=== PATIENT | male | born 1960 | race Caucasian/White ===

== ENCOUNTER 2020-08-21 09:24 | Inpatient (IN) | payer OTHER, MEDICARE ==
[~2020-08-21] VITALS: Ht 172.7 cm; Wt 52.0 kg
--- NOTE | 2020-08-21 09:35 | NUR ---
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
--- NOTE | 2020-08-21 09:55 | NUR ---
IV STARTED, LACTIC ACID AND BLOOD CULTURES DRAWN X 2 SITES. SEPSIS PROTOCOL INITIATED.
[2020-08-21] MEDS ORDERED: VANCOMYCIN PER PHARMACY MC ONE (10:00)
[2020-08-21] MEDS ORDERED: AMPICILLIN/SULBACTAM 3 GM in SODIUM CHLORIDE 0.9% 100 ML IV ONE (10:00)
[2020-08-21] MEDS ORDERED: SODIUM CHLORIDE 0.9% 1,000ML IVBOLUS ONE (10:00)
[2020-08-21 10:14] LABS: BASOPHILS % (AUTO) 1 % (0-1); EOSINOPHILS % (AUTO) 0 % (1-7); LYMPHOCYTES % (AUTO) 8 % (22-44); MEAN CORPUSCULAR HEMOGLOBIN 24.1 pg (27.5-34.5); MEAN CORPUSCULAR HGB CONC 33.1 g/dL (33.2-36.2); MEAN PLATELET VOLUME 6.5 fL (7.4-10.4); MONOCYTES % (AUTO) 7 % (2-9); NEUTROPHILS % (AUTO) 85 % (42-75); PLATELET COUNT 767 x10^3/uL (130-400); RED BLOOD COUNT 3.58 x10^6/uL (4.38-5.82); RED CELL DISTRIBUTION WIDTH 14.9 % (9.4-14.8)
[2020-08-21] MEDS ORDERED: MORPHINE SULFATE 4 MG/ML, 1ML ONE ×2 (10:16→13:23)
[2020-08-21 10:18] LABS: ALBUMIN 2.2 g/dL (3.4-5.0); ANION GAP 7 mmol/L (5-15); CALCIUM 8.3 mg/dL (8.5-10.1); CHLORIDE 102 mmol/L (98-107); CREATININE 0.91 mg/dL (0.7-1.3)
[2020-08-21] MEDS: MORPHINE SULFATE 4 MG/ML, 1ML IVPush PRN ×2 (10:19→13:28)
[2020-08-21] MEDS ORDERED: VANCOMYCIN 1,500 MG in SODIUM CHLORIDE 0.9% 250 ML IV ONE (10:30)
[2020-08-21 10:40] LABS: MD MORPH REVIEW ONLY
[2020-08-21 10:42] LABS: <PLATELET ESTIMATE> INCREASED
[2020-08-21 10:43] LABS: SPHEROCYTES 1+
[2020-08-21 10:45] LABS: HYPOCHROMIA 1+
[2020-08-21 10:49] LABS: MICROCYTOSIS 1+
--- NOTE | 2020-08-21 10:55 | NUR ---
PT TO XRAY
--- NOTE | 2020-08-21 11:36 | NUR ---
PT SLEEPING. STATES PAIN RELIEF
[2020-08-21] MEDS ORDERED: VANCOMYCIN PER PHARMACY MC PRN (12:30)
[2020-08-21] MEDS ORDERED: ENALAPRILAT 1.25 MG/ML, 2ML IVPush PRN (12:30)
[2020-08-21] MEDS ORDERED: morphine SULFATE 10 MG/ML, 1ML IVPush PRN (12:30)
[2020-08-21] MEDS ORDERED: ACETAMINOPHEN 325 MG TABLET PO PRN (12:30)
[2020-08-21] MEDS ORDERED: ONDANSETRON ODT 4 MG PO PRN (12:30)
[2020-08-21] MEDS ORDERED: TRAZODONE 50MG TABLET PO PRN (12:30)
--- NOTE | 2020-08-21 13:59 | NUR ---
REPORT CALLED TO JULIO ANDREA
[2020-08-21 14:00] VITALS: BP 135/74
[2020-08-21] MEDS ORDERED: PHARMACOKINETIC MONITORING MC PRN (14:30)
[2020-08-21] MEDS: INSULIN LISPRO 100 UNITS/ML, PEN SQ-INSULIN SCH ×2 (16:00→21:16)
[2020-08-21] MEDS: AMPICILLIN/SULBACTAM 3 GM in SODIUM CHLORIDE 0.9% 100 ML IV SCH ×2 (18:45→23:52)
[2020-08-21 19:26] VITALS: BP 127/75
[2020-08-21] MEDS: HYDROcodone/APAP 5/325 TABLET PO PRN (23:26)
[2020-08-22 01:31] VITALS: BP 100/62
[2020-08-22] MEDS: VANCOMYCIN 1,200 MG in SODIUM CHLORIDE 0.9% 250 ML IV SCH ×2 (04:23→22:03)
[2020-08-22 05:36] LABS: BASOPHILS % (AUTO) 0 % (0-1); EOSINOPHILS % (AUTO) 1 % (1-7); LYMPHOCYTES % (AUTO) 19 % (22-44); MEAN CORPUSCULAR HEMOGLOBIN 24.5 pg (27.5-34.5); MEAN CORPUSCULAR HGB CONC 33.2 g/dL (33.2-36.2); MEAN PLATELET VOLUME 6.4 fL (7.4-10.4); MONOCYTES % (AUTO) 10 % (2-9); NEUTROPHILS % (AUTO) 70 % (42-75); PLATELET COUNT 663 x10^3/uL (130-400); RED BLOOD COUNT 3.18 x10^6/uL (4.38-5.82); RED CELL DISTRIBUTION WIDTH 14.5 % (9.4-14.8)
[2020-08-22 05:41] LABS: MD NO
[2020-08-22 05:46] LABS: ANION GAP 5 mmol/L (5-15); CALCIUM 8.3 mg/dL (8.5-10.1); CHLORIDE 107 mmol/L (98-107); CREATININE 0.95 mg/dL (0.7-1.3)
[2020-08-22] MEDS: AMPICILLIN/SULBACTAM 3 GM in SODIUM CHLORIDE 0.9% 100 ML IV SCH ×4 (06:10→23:56)
[2020-08-22 07:00] VITALS: BP 162/87
[2020-08-22] MEDS: SENNA/DOCUSATE TABLET PO SCH (09:00)
[2020-08-22] MEDS: HYDROcodone/APAP 5/325 TABLET PO PRN ×2 (09:25→16:51)
[2020-08-22] MEDS: INSULIN LISPRO 100 UNITS/ML, PEN SQ-INSULIN SCH ×4 (09:59→20:09)
[2020-08-22 14:00] VITALS: BP 126/71
[2020-08-22 19:17] VITALS: BP 126/70
[2020-08-23] MEDS: HYDROcodone/APAP 5/325 TABLET PO PRN ×2 (02:26→12:36)
[2020-08-23 03:22] VITALS: BP 155/71
[2020-08-23] MEDS: AMPICILLIN/SULBACTAM 3 GM in SODIUM CHLORIDE 0.9% 100 ML IV SCH ×3 (06:27→17:28)
[2020-08-23] MEDS: INSULIN LISPRO 100 UNITS/ML, PEN SQ-INSULIN SCH ×4 (06:33→21:17)
[2020-08-23 06:52] VITALS: BP 142/81
[2020-08-23] MEDS: SENNA/DOCUSATE TABLET PO SCH (07:48)
[2020-08-23 12:18] VITALS: BP 129/78
[2020-08-23] MEDS: VANCOMYCIN 1,200 MG in SODIUM CHLORIDE 0.9% 250 ML IV SCH (16:17)
[2020-08-23 19:59] VITALS: BP 119/66
[2020-08-24] MEDS: AMPICILLIN/SULBACTAM 3 GM in SODIUM CHLORIDE 0.9% 100 ML IV SCH ×4 (00:06→18:01)
[2020-08-24 00:57] VITALS: BP 120/73
[2020-08-24] MEDS: HYDROcodone/APAP 5/325 TABLET PO PRN ×3 (02:04→21:07)
[2020-08-24] MEDS: INSULIN LISPRO 100 UNITS/ML, PEN SQ-INSULIN SCH ×4 (07:26→21:00)
[2020-08-24 07:46] VITALS: BP 126/70
[2020-08-24] MEDS: SENNA/DOCUSATE TABLET PO SCH (08:12)
[2020-08-24] MEDS: VANCOMYCIN 1,200 MG in SODIUM CHLORIDE 0.9% 250 ML IV SCH ×2 (09:58→21:20)
[2020-08-24 12:39] VITALS: BP 109/56
[2020-08-24 19:36] VITALS: BP 129/73
[2020-08-25] MEDS: AMPICILLIN/SULBACTAM 3 GM in SODIUM CHLORIDE 0.9% 100 ML IV SCH ×5 (00:27→23:48)
[2020-08-25 00:48] VITALS: BP 146/88
[2020-08-25 02:49] VITALS: BP 113/59
[2020-08-25] MEDS: HYDROcodone/APAP 5/325 TABLET PO PRN ×2 (06:53→20:47)
[2020-08-25] MEDS: INSULIN LISPRO 100 UNITS/ML, PEN SQ-INSULIN SCH ×4 (07:26→20:48)
[2020-08-25 07:30] VITALS: BP 142/77
[2020-08-25] MEDS: SENNA/DOCUSATE TABLET PO SCH (08:00)
[2020-08-25] MEDS: VANCOMYCIN 1,200 MG in SODIUM CHLORIDE 0.9% 250 ML IV SCH (08:52)
[2020-08-25 13:40] VITALS: BP 123/68
[2020-08-25] MEDS ORDERED: ENOXAPARIN 40 MG/0.4 ML SQ SCH (16:00)
[2020-08-25 18:28] VITALS: BP 111/62
[2020-08-26 00:47] VITALS: BP 132/66
[2020-08-26] MEDS: VANCOMYCIN 1,300 MG in SODIUM CHLORIDE 0.9% 250 ML IV SCH ×2 (03:01→20:39)
[2020-08-26] MEDS: HYDROcodone/APAP 5/325 TABLET PO PRN ×2 (05:26→23:13)
[2020-08-26] MEDS: AMPICILLIN/SULBACTAM 3 GM in SODIUM CHLORIDE 0.9% 100 ML IV SCH ×3 (05:27→23:13)
[2020-08-26] MEDS: INSULIN LISPRO 100 UNITS/ML, PEN SQ-INSULIN SCH ×4 (07:00→20:53)
[2020-08-26 07:30] VITALS: BP 125/66
[2020-08-26] MEDS: SENNA/DOCUSATE TABLET PO SCH (07:44)
[2020-08-26] MEDS ORDERED: PAPAVERINE 30 MG/ML, 2ML ONE (11:11)
[2020-08-26] MEDS ORDERED: HEPARIN 1,000 UNITS/ML, 10ML ONE (11:11)
[2020-08-26] MEDS ORDERED: PROTAMINE SULFATE 10 MG/ML, 5ML ONE (11:11)
[2020-08-26] MEDS ORDERED: THROMBIN 5,000 UNIT VIAL TP ONE (11:11)
[2020-08-26] MEDS ORDERED: LIDOCAINE/PF 1%, 30ML ONE (11:12)
[2020-08-26] MEDS ORDERED: THROMBIN 20,000 UNIT VIAL TP ONE (11:12)
[2020-08-26] MEDS ORDERED: EPINEPHRINE 1 MG/ML, 1ML ONE (11:12)
[2020-08-26] MEDS ORDERED: BACITRACIN 50,000 UNIT ONE (11:12)
[2020-08-26] MEDS ORDERED: CHLORHEXIDINE 15 ML UDC ONE (11:19)
[2020-08-26] MEDS ORDERED: FENTANYL PF 250 MCG/5ML ONE (11:23)
[2020-08-26] MEDS ORDERED: MIDAZOLAM 1 MG/ML, 2ML ONE (11:23)
[2020-08-26] MEDS ORDERED: PROPOFOL 10 MG/ML, 20ML ONE (11:24)
[2020-08-26] MEDS ORDERED: ROCURONIUM 10MG/ML,5ML ONE (11:25)
[2020-08-26] MEDS ORDERED: CHLORHEXIDINE 15 ML UDC MM STA (11:47)
[2020-08-26] MEDS ORDERED: DEXAMETHASONE 4 MG/ML, 5ML ONE ×2 (12:33)
[2020-08-26] MEDS ORDERED: HEPARIN 1,000 UNITS/ML, 10ML IV ONE (13:28)
[2020-08-26] MEDS ORDERED: BACITRACIN 50,000 UNIT IRRIG ONE (13:29)
[2020-08-26] MEDS ORDERED: ONDANSETRON 2MG/ML, 2ML ONE (14:22)
[2020-08-26] MEDS ORDERED: FENTANYL PF 100 MCG/2ML ONE ×2 (15:16→15:38)
[2020-08-26] MEDS: FENTANYL PF 100 MCG/2ML IV PRN ×4 (15:20→15:53)
[2020-08-26] MEDS ORDERED: hydrALAzine 20 MG/ML, 1ML IV PRN (15:30)
[2020-08-26] MEDS ORDERED: PROMETHAZINE 25 MG/ML, 1ML IVPush PRN (15:30)
[2020-08-26] MEDS ORDERED: OXYcodone 5 MG/5 ML ORAL.SOL UDC PO PRN (15:30)
[2020-08-26] MEDS ORDERED: LORazepam 2 MG/ML, 1ML ONE (15:30)
[2020-08-26] MEDS ORDERED: MIDAZOLAM 1 MG/ML, 2ML IV PRN (15:30)
[2020-08-26] MEDS ORDERED: HYDROmorphone 1 MG/ML, 1ML INJ IVPush PRN (15:30)
[2020-08-26] MEDS ORDERED: ACETAMINOPHEN 325 MG TABLET PO PRN (15:30)
[2020-08-26] MEDS ORDERED: ONDANSETRON 2MG/ML, 2ML IVPush PRN (15:30)
[2020-08-26] MEDS ORDERED: LABETALOL 5MG/ML, 20ML IV PRN (15:30)
[2020-08-26] MEDS ORDERED: morphine SULFATE 10 MG/ML, 1ML IVPush PRN (15:30)
[2020-08-26] MEDS: LORazepam 2 MG/ML, 1ML IVPush PRN ×2 (15:35→15:46)
[2020-08-26 17:20] VITALS: BP 121/71
[2020-08-26] MEDS ORDERED: KETOROLAC 30 MG/1 ML IV PRN (17:30)
[2020-08-26] MEDS: ENOXAPARIN 40 MG/0.4 ML SQ SCH (18:47)
[2020-08-26 19:09] VITALS: BP 141/79
[2020-08-26] MEDS: POTASSIUM CHLORIDE 20 MEQ in SODIUM CHLORIDE 0.9% 1,000 ML IV SCH (19:53)
[2020-08-26 23:06] VITALS: BP 130/73
[2020-08-27 03:08] VITALS: BP 128/78
[2020-08-27 04:59] LABS: BASOPHILS % (AUTO) 0 % (0-1); EOSINOPHILS % (AUTO) 0 % (1-7); LYMPHOCYTES % (AUTO) 6 % (22-44); MEAN CORPUSCULAR HEMOGLOBIN 24.2 pg (27.5-34.5); MEAN CORPUSCULAR HGB CONC 32.7 g/dL (33.2-36.2); MEAN PLATELET VOLUME 6.5 fL (7.4-10.4); MONOCYTES % (AUTO) 5 % (2-9); NEUTROPHILS % (AUTO) 89 % (42-75); PLATELET COUNT 637 x10^3/uL (130-400); RED BLOOD COUNT 2.96 x10^6/uL (4.38-5.82); RED CELL DISTRIBUTION WIDTH 14.8 % (9.4-14.8)
[2020-08-27 05:09] LABS: ALBUMIN 1.4 g/dL (3.4-5.0); ANION GAP 8 mmol/L (5-15); CALCIUM 7.7 mg/dL (8.5-10.1); CHLORIDE 106 mmol/L (98-107); CREATININE 0.94 mg/dL (0.7-1.3)
[2020-08-27] MEDS: AMPICILLIN/SULBACTAM 3 GM in SODIUM CHLORIDE 0.9% 100 ML IV SCH ×3 (05:21→21:34)
[2020-08-27 05:29] LABS: MD NO
[2020-08-27 07:32] VITALS: BP 143/80
[2020-08-27] MEDS: SENNA/DOCUSATE TABLET PO SCH (08:13)
[2020-08-27] MEDS: INSULIN LISPRO 100 UNITS/ML, PEN SQ-INSULIN SCH ×4 (08:13→21:35)
[2020-08-27] MEDS: POTASSIUM CHLORIDE 20 MEQ in SODIUM CHLORIDE 0.9% 1,000 ML IV SCH ×2 (11:27→19:06)
[2020-08-27 12:31] VITALS: BP 128/71
[2020-08-27] MEDS ORDERED: FENTANYL PF 100 MCG/2ML IV PRN (14:30)
[2020-08-27] MEDS ORDERED: LABETALOL 5MG/ML, 20ML IV PRN (14:30)
[2020-08-27] MEDS ORDERED: hydrALAzine 20 MG/ML, 1ML IV PRN (14:30)
[2020-08-27] MEDS ORDERED: ONDANSETRON 2MG/ML, 2ML IVPush PRN (14:30)
[2020-08-27] MEDS ORDERED: ACETAMINOPHEN 325 MG TABLET PO PRN (14:30)
[2020-08-27] MEDS ORDERED: PROMETHAZINE 25 MG/ML, 1ML IVPush PRN (14:30)
[2020-08-27] MEDS ORDERED: HYDROmorphone 1 MG/ML, 1ML INJ IVPush PRN (14:30)
[2020-08-27] MEDS ORDERED: OXYcodone 5 MG/5 ML ORAL.SOL UDC PO PRN (14:30)
[2020-08-27] MEDS ORDERED: EPHEDRINE 50 MG/ML, 1ML IVPush PRN (14:30)
[2020-08-27] MEDS ORDERED: CHLORHEXIDINE 15 ML UDC ONE (14:52)
[2020-08-27] MEDS: VANCOMYCIN 1,300 MG in SODIUM CHLORIDE 0.9% 250 ML IV SCH (15:00)
[2020-08-27] MEDS ORDERED: CHLORHEXIDINE 15 ML UDC MM ONE (15:00)
[2020-08-27] MEDS ORDERED: FENTANYL PF 100 MCG/2ML ONE ×2 (15:01→16:00)
[2020-08-27] MEDS ORDERED: MIDAZOLAM 1 MG/ML, 2ML ONE (15:01)
[2020-08-27] MEDS ORDERED: PROPOFOL 10 MG/ML, 20ML ONE (15:22)
[2020-08-27] MEDS ORDERED: DEXAMETHASONE 4 MG/ML, 5ML ONE (15:22)
[2020-08-27] MEDS ORDERED: LIDOCAINE-MPF 2% ,5ML ONE (15:23)
[2020-08-27] MEDS ORDERED: KETOROLAC 30 MG/1 ML ONE (15:23)
[2020-08-27] MEDS ORDERED: ONDANSETRON 2MG/ML, 2ML ONE (15:23)
[2020-08-27] MEDS ORDERED: OXYcodone 5 MG/5 ML ORAL.SOL UDC ONE (16:46)
[2020-08-27 18:00] VITALS: BP 142/80
[2020-08-27] MEDS: ENOXAPARIN 40 MG/0.4 ML SQ SCH (18:43)
[2020-08-27] MEDS: HYDROcodone/APAP 5/325 TABLET PO PRN (21:34)
[2020-08-27 23:39] VITALS: BP 130/85
[2020-08-28 03:30] VITALS: BP 130/75
[2020-08-28] MEDS: AMPICILLIN/SULBACTAM 3 GM in SODIUM CHLORIDE 0.9% 100 ML IV SCH ×4 (03:56→21:14)
[2020-08-28] MEDS: POTASSIUM CHLORIDE 20 MEQ in SODIUM CHLORIDE 0.9% 1,000 ML IV SCH ×2 (04:55→15:18)
[2020-08-28] MEDS: HYDROcodone/APAP 5/325 TABLET PO PRN ×2 (04:55→11:46)
[2020-08-28 07:40] VITALS: BP 150/87
[2020-08-28] MEDS: INSULIN LISPRO 100 UNITS/ML, PEN SQ-INSULIN SCH ×4 (07:46→21:14)
[2020-08-28] MEDS: VANCOMYCIN 1,300 MG in SODIUM CHLORIDE 0.9% 250 ML IV SCH (08:31)
[2020-08-28] MEDS: SENNA/DOCUSATE TABLET PO SCH (10:35)
[2020-08-28] MEDS: CLOPIDOGREL 75 MG TABLET PO SCH (11:36)
[2020-08-28 13:30] VITALS: BP 121/72
[2020-08-28] MEDS: ONDANSETRON 2MG/ML, 2ML IVPush PRN (18:24)
[2020-08-28 19:02] VITALS: BP 126/73
[2020-08-28] MEDS: ENOXAPARIN 40 MG/0.4 ML SQ SCH (19:43)
[2020-08-29] MEDS: POTASSIUM CHLORIDE 20 MEQ in SODIUM CHLORIDE 0.9% 1,000 ML IV SCH ×3 (01:24→21:36)
[2020-08-29 02:04] VITALS: BP 148/87
[2020-08-29] MEDS: HYDROcodone/APAP 5/325 TABLET PO PRN ×3 (02:22→19:23)
[2020-08-29] MEDS: AMPICILLIN/SULBACTAM 3 GM in SODIUM CHLORIDE 0.9% 100 ML IV SCH ×4 (03:18→21:33)
[2020-08-29] MEDS: VANCOMYCIN 1,300 MG in SODIUM CHLORIDE 0.9% 250 ML IV SCH ×2 (03:52→23:07)
[2020-08-29] MEDS: ASPIRIN 81 MG TABLET EC PO SCH (06:14)
[2020-08-29 07:10] VITALS: BP 137/76
[2020-08-29] MEDS: SENNA/DOCUSATE TABLET PO SCH (07:38)
[2020-08-29] MEDS: INSULIN LISPRO 100 UNITS/ML, PEN SQ-INSULIN SCH ×4 (07:38→21:33)
[2020-08-29] MEDS: CLOPIDOGREL 75 MG TABLET PO SCH (07:38)
[2020-08-29] MEDS: morphine SULFATE 10 MG/ML, 1ML IV PRN (10:20)
[2020-08-29 13:40] VITALS: BP 132/76
[2020-08-29 15:25] LABS: BASOPHILS % (AUTO) 1 % (0-1); EOSINOPHILS % (AUTO) 1 % (1-7); LYMPHOCYTES % (AUTO) 12 % (22-44); MEAN CORPUSCULAR HEMOGLOBIN 23.8 pg (27.5-34.5); MEAN CORPUSCULAR HGB CONC 32.4 g/dL (33.2-36.2); MEAN PLATELET VOLUME 6.4 fL (7.4-10.4); MONOCYTES % (AUTO) 8 % (2-9); NEUTROPHILS % (AUTO) 79 % (42-75); PLATELET COUNT 723 x10^3/uL (130-400); RED BLOOD COUNT 3.03 x10^6/uL (4.38-5.82); RED CELL DISTRIBUTION WIDTH 15.3 % (9.4-14.8)
[2020-08-29 15:30] LABS: MD NO
[2020-08-29 15:37] LABS: ALBUMIN 1.6 g/dL (3.4-5.0); ANION GAP 7 mmol/L (5-15); CALCIUM 7.9 mg/dL (8.5-10.1); CHLORIDE 105 mmol/L (98-107)
[2020-08-29 15:42] LABS: ALANINE AMINOTRANSFERASE 15 U/L (12-78); ALKALINE PHOSPHATASE 148 U/L (45-117); BILIRUBIN,TOTAL 0.2 mg/dL (0.2-1.0); CREATININE 0.94 mg/dL (0.7-1.3); TOTAL PROTEIN 5.7 g/dL (6.4-8.2)
[2020-08-29] MEDS ORDERED: FUROSEMIDE 40 MG/4 ML IV ONE (18:00)
[2020-08-29] MEDS: ENOXAPARIN 40 MG/0.4 ML SQ SCH (19:23)
[2020-08-29 19:55] VITALS: BP 132/86
[2020-08-29 22:44] LABS: CREATININE 0.93 mg/dL (0.7-1.3)
[2020-08-29 22:45] LABS: VANCOMYCIN,TROUGH 15.6 mcg/mL (5.0-10.0)
[2020-08-29] MEDS: INSULIN GLARGINE 100 UNITS/ML, PEN SQ-INSULIN SCH (23:07)
[2020-08-30] VITALS (11 sets, daily range): BP systolic 140–160; BP diastolic 64–89
[2020-08-30] MEDS: AMPICILLIN/SULBACTAM 3 GM in SODIUM CHLORIDE 0.9% 100 ML IV SCH ×4 (03:53→21:57)
[2020-08-30 05:13] LABS: BASOPHILS % (AUTO) 1 % (0-1); EOSINOPHILS % (AUTO) 1 % (1-7); LYMPHOCYTES % (AUTO) 12 % (22-44); MEAN CORPUSCULAR HEMOGLOBIN 23.9 pg (27.5-34.5); MEAN CORPUSCULAR HGB CONC 32.8 g/dL (33.2-36.2); MEAN PLATELET VOLUME 6.4 fL (7.4-10.4); MONOCYTES % (AUTO) 7 % (2-9); NEUTROPHILS % (AUTO) 79 % (42-75); PLATELET COUNT 670 x10^3/uL (130-400); RED BLOOD COUNT 2.93 x10^6/uL (4.38-5.82); RED CELL DISTRIBUTION WIDTH 15.2 % (9.4-14.8)
[2020-08-30 05:26] LABS: CHLORIDE 106 mmol/L (98-107); MD NO
[2020-08-30 05:33] LABS: ANION GAP 7 mmol/L (5-15); CALCIUM 7.7 mg/dL (8.5-10.1); CREATININE 0.85 mg/dL (0.7-1.3)
[2020-08-30] MEDS: ASPIRIN 81 MG TABLET EC PO SCH (06:38)
[2020-08-30] MEDS: INSULIN LISPRO 100 UNITS/ML, PEN SQ-INSULIN SCH ×4 (07:00→20:52)
[2020-08-30] MEDS: HYDROcodone/APAP 5/325 TABLET PO PRN ×4 (07:01→19:52)
[2020-08-30] MEDS: POTASSIUM CHLORIDE 20 MEQ in SODIUM CHLORIDE 0.9% 1,000 ML IV SCH ×2 (07:42→16:23)
[2020-08-30] MEDS: SENNA/DOCUSATE TABLET PO SCH (08:30)
[2020-08-30] MEDS: CLOPIDOGREL 75 MG TABLET PO SCH (08:30)
[2020-08-30] MEDS: VANCOMYCIN 1,300 MG in SODIUM CHLORIDE 0.9% 250 ML IV SCH (16:42)
[2020-08-30] MEDS: ENOXAPARIN 40 MG/0.4 ML SQ SCH (19:35)
[2020-08-30] MEDS: INSULIN GLARGINE 100 UNITS/ML, PEN SQ-INSULIN SCH (20:51)
[2020-08-31 03:12] VITALS: BP 154/73
[2020-08-31] MEDS: HYDROcodone/APAP 5/325 TABLET PO PRN ×3 (03:19→16:41)
[2020-08-31] MEDS: POTASSIUM CHLORIDE 20 MEQ in SODIUM CHLORIDE 0.9% 1,000 ML IV SCH ×2 (03:54→14:00)
[2020-08-31] MEDS: AMPICILLIN/SULBACTAM 3 GM in SODIUM CHLORIDE 0.9% 100 ML IV SCH ×4 (04:14→22:32)
[2020-08-31] MEDS: ASPIRIN 81 MG TABLET EC PO SCH (05:37)
[2020-08-31] MEDS: INSULIN LISPRO 100 UNITS/ML, PEN SQ-INSULIN SCH ×4 (07:00→22:48)
[2020-08-31 07:11] VITALS: BP_SYST 143; BP_SYST 146; BP_DIAS 85; BP_DIAS 87
[2020-08-31] MEDS: SENNA/DOCUSATE TABLET PO SCH (07:59)
[2020-08-31] MEDS: CLOPIDOGREL 75 MG TABLET PO SCH (07:59)
[2020-08-31] MEDS: VANCOMYCIN 1,300 MG in SODIUM CHLORIDE 0.9% 250 ML IV SCH (11:37)
[2020-08-31 13:40] VITALS: BP 149/84
[2020-08-31 14:23] LABS: BASOPHILS % (AUTO) 0 % (0-1); EOSINOPHILS % (AUTO) 1 % (1-7); LYMPHOCYTES % (AUTO) 8 % (22-44); MEAN CORPUSCULAR HEMOGLOBIN 24.7 pg (27.5-34.5); MEAN CORPUSCULAR HGB CONC 32.9 g/dL (33.2-36.2); MEAN PLATELET VOLUME 6.1 fL (7.4-10.4); MONOCYTES % (AUTO) 6 % (2-9); NEUTROPHILS % (AUTO) 85 % (42-75); PLATELET COUNT 614 x10^3/uL (130-400); RED BLOOD COUNT 3.53 x10^6/uL (4.38-5.82); RED CELL DISTRIBUTION WIDTH 16.1 % (9.4-14.8)
[2020-08-31 14:51] LABS: ANISOCYTOSIS 1+; MD MORPH REVIEW ONLY; MICROCYTOSIS 1+
[2020-08-31 14:52] LABS: HYPOCHROMIA 1+; POLYCHROMASIA 1+
[2020-08-31 14:53] LABS: OVALOCYTES 1+
[2020-08-31 14:54] LABS: <PLATELET ESTIMATE> INCREASED; <PLT MORPHOLOGY> NORMAL PLT MORPH
[2020-08-31] MEDS ORDERED: FUROSEMIDE 40 MG/4 ML IV ONE (17:00)
[2020-08-31 18:49] VITALS: BP 142/76
[2020-08-31] MEDS: ENOXAPARIN 40 MG/0.4 ML SQ SCH (19:44)
[2020-08-31] MEDS: INSULIN GLARGINE 100 UNITS/ML, PEN SQ-INSULIN SCH (22:47)
[2020-09-01] MEDS: POTASSIUM CHLORIDE 20 MEQ in SODIUM CHLORIDE 0.9% 1,000 ML IV SCH ×3 (00:06→20:18)
[2020-09-01 01:28] VITALS: BP 145/79
[2020-09-01] MEDS: AMPICILLIN/SULBACTAM 3 GM in SODIUM CHLORIDE 0.9% 100 ML IV SCH ×4 (04:05→21:53)
[2020-09-01] MEDS: HYDROcodone/APAP 5/325 TABLET PO PRN ×2 (04:16→20:10)
[2020-09-01] MEDS: VANCOMYCIN 1,300 MG in SODIUM CHLORIDE 0.9% 250 ML IV SCH ×2 (05:35→23:08)
[2020-09-01] MEDS: ASPIRIN 81 MG TABLET EC PO SCH (05:35)
[2020-09-01 05:37] LABS: BASOPHILS % (AUTO) 0 % (0-1); EOSINOPHILS % (AUTO) 1 % (1-7); LYMPHOCYTES % (AUTO) 11 % (22-44); MEAN CORPUSCULAR HEMOGLOBIN 24.7 pg (27.5-34.5); MEAN CORPUSCULAR HGB CONC 33.2 g/dL (33.2-36.2); MEAN PLATELET VOLUME 6.6 fL (7.4-10.4); MONOCYTES % (AUTO) 9 % (2-9); NEUTROPHILS % (AUTO) 79 % (42-75); PLATELET COUNT 581 x10^3/uL (130-400); RED BLOOD COUNT 3.43 x10^6/uL (4.38-5.82); RED CELL DISTRIBUTION WIDTH 16.8 % (9.4-14.8)
[2020-09-01 05:41] LABS: ANION GAP 6 mmol/L (5-15); CALCIUM 7.7 mg/dL (8.5-10.1); CHLORIDE 102 mmol/L (98-107); CREATININE 0.77 mg/dL (0.7-1.3)
[2020-09-01 05:43] LABS: MD NO
[2020-09-01] MEDS: INSULIN LISPRO 100 UNITS/ML, PEN SQ-INSULIN SCH ×4 (07:00→22:17)
[2020-09-01 08:35] VITALS: BP 143/77
[2020-09-01] MEDS: SENNA/DOCUSATE TABLET PO SCH (09:38)
[2020-09-01] MEDS: CLOPIDOGREL 75 MG TABLET PO SCH (09:38)
[2020-09-01] MEDS: morphine SULFATE 10 MG/ML, 1ML IV PRN (09:52)
[2020-09-01 13:20] VITALS: BP 158/85
[2020-09-01] MEDS ORDERED: FUROSEMIDE 40 MG TABLET PO ONE (14:30)
[2020-09-01 19:05] VITALS: BP 140/92
[2020-09-01] MEDS: ENOXAPARIN 40 MG/0.4 ML SQ SCH (19:51)
[2020-09-01] MEDS: INSULIN GLARGINE 100 UNITS/ML, PEN SQ-INSULIN SCH (22:19)
[2020-09-02 01:12] VITALS: BP 156/85
[2020-09-02] MEDS: AMPICILLIN/SULBACTAM 3 GM in SODIUM CHLORIDE 0.9% 100 ML IV SCH ×4 (04:29→22:39)
[2020-09-02] MEDS: HYDROcodone/APAP 5/325 TABLET PO PRN ×3 (04:46→19:39)
[2020-09-02] MEDS: POTASSIUM CHLORIDE 20 MEQ in SODIUM CHLORIDE 0.9% 1,000 ML IV SCH ×2 (06:24→16:30)
[2020-09-02] MEDS: ASPIRIN 81 MG TABLET EC PO SCH (06:25)
[2020-09-02] MEDS: INSULIN LISPRO 100 UNITS/ML, PEN SQ-INSULIN SCH ×4 (07:00→21:41)
[2020-09-02 07:10] VITALS: BP 138/79
[2020-09-02] MEDS: SENNA/DOCUSATE TABLET PO SCH (08:40)
[2020-09-02] MEDS: CLOPIDOGREL 75 MG TABLET PO SCH (08:40)
[2020-09-02 12:48] VITALS: BP 155/76
[2020-09-02] MEDS: VANCOMYCIN 1,300 MG in SODIUM CHLORIDE 0.9% 250 ML IV SCH (17:44)
[2020-09-02] MEDS: ENOXAPARIN 40 MG/0.4 ML SQ SCH (19:40)
[2020-09-02 20:14] VITALS: BP 132/76
[2020-09-02] MEDS: INSULIN GLARGINE 100 UNITS/ML, PEN SQ-INSULIN SCH (21:43)
[2020-09-03] MEDS: POTASSIUM CHLORIDE 20 MEQ in SODIUM CHLORIDE 0.9% 1,000 ML IV SCH ×3 (02:36→22:48)
[2020-09-03 03:13] VITALS: BP 157/89
[2020-09-03] MEDS: AMPICILLIN/SULBACTAM 3 GM in SODIUM CHLORIDE 0.9% 100 ML IV SCH ×4 (04:27→22:27)
[2020-09-03] MEDS: ASPIRIN 81 MG TABLET EC PO SCH (06:16)
[2020-09-03] MEDS: HYDROcodone/APAP 5/325 TABLET PO PRN ×2 (06:16→20:03)
[2020-09-03 06:20] VITALS: BP 141/84
[2020-09-03] MEDS: INSULIN LISPRO 100 UNITS/ML, PEN SQ-INSULIN SCH ×4 (07:00→22:25)
[2020-09-03] MEDS: SENNA/DOCUSATE TABLET PO SCH (09:00)
[2020-09-03] MEDS: CLOPIDOGREL 75 MG TABLET PO SCH (09:01)
[2020-09-03] MEDS: morphine SULFATE 10 MG/ML, 1ML IV PRN (09:36)
[2020-09-03] MEDS: VANCOMYCIN 1,300 MG in SODIUM CHLORIDE 0.9% 250 ML IV SCH (11:19)
[2020-09-03] MEDS: DAKIN'S SOLUTION 1/4 STRENGTH 1,000 ML IRRIG SOLN EXT SCH (12:27)
[2020-09-03 13:35] VITALS: BP 148/87
[2020-09-03 19:46] VITALS: BP 145/75
[2020-09-03] MEDS: ENOXAPARIN 40 MG/0.4 ML SQ SCH (20:04)
[2020-09-03] MEDS ORDERED: INSULIN GLARGINE 100 UNITS/ML, PEN SQ-INSULIN SCH (21:00)
[2020-09-03] MEDS: INSULIN GLARGINE 100 UNITS/ML, PEN SQ-INSULIN SCH (22:26)
[2020-09-04 00:45] VITALS: BP 135/71
[2020-09-04] MEDS: ASPIRIN 81 MG TABLET EC PO SCH (05:06)
[2020-09-04] MEDS: HYDROcodone/APAP 5/325 TABLET PO PRN ×2 (05:06→17:02)
[2020-09-04] MEDS: AMPICILLIN/SULBACTAM 3 GM in SODIUM CHLORIDE 0.9% 100 ML IV SCH ×4 (05:21→22:13)
[2020-09-04] MEDS: VANCOMYCIN 1,300 MG in SODIUM CHLORIDE 0.9% 250 ML IV SCH ×2 (06:11→23:49)
[2020-09-04] MEDS: INSULIN LISPRO 100 UNITS/ML, PEN SQ-INSULIN SCH ×4 (07:00→22:14)
[2020-09-04 07:57] VITALS: BP 153/84
[2020-09-04] MEDS: SENNA/DOCUSATE TABLET PO SCH (08:33)
[2020-09-04] MEDS: POTASSIUM CHLORIDE 20 MEQ in SODIUM CHLORIDE 0.9% 1,000 ML IV SCH ×2 (08:33→17:59)
[2020-09-04] MEDS: CLOPIDOGREL 75 MG TABLET PO SCH (08:33)
[2020-09-04] MEDS: DAKIN'S SOLUTION 1/4 STRENGTH 1,000 ML IRRIG SOLN EXT SCH (09:00)
[2020-09-04 12:09] VITALS: BP 152/80
--- NOTE | 2020-09-04 15:46 | NUR ---
Green nursing activity sheet intiated: 1) up to chair for 2-3 meals 2) amb with nursing with FWW SYLVAIN EPSTEIN 1-3 times a day Addendum: 09/04/20 at 1548 by Madeline Mora PT Amended: Links added.
[2020-09-04 19:40] VITALS: BP 138/75
[2020-09-04] MEDS ORDERED: INSULIN GLARGINE 100 UNITS/ML, PEN SQ-INSULIN SCH (21:00)
[2020-09-04] MEDS: ENOXAPARIN 40 MG/0.4 ML SQ SCH (21:56)
[2020-09-04] MEDS: INSULIN GLARGINE 100 UNITS/ML, PEN SQ-INSULIN SCH (22:14)
[2020-09-05 00:24] VITALS: BP 150/78
[2020-09-05] MEDS: POTASSIUM CHLORIDE 20 MEQ in SODIUM CHLORIDE 0.9% 1,000 ML IV SCH ×2 (04:40→14:30)
[2020-09-05] MEDS: AMPICILLIN/SULBACTAM 3 GM in SODIUM CHLORIDE 0.9% 100 ML IV SCH ×4 (04:40→22:19)
[2020-09-05] MEDS: ASPIRIN 81 MG TABLET EC PO SCH (06:14)
[2020-09-05] MEDS: HYDROcodone/APAP 5/325 TABLET PO PRN ×3 (06:15→21:00)
[2020-09-05] MEDS: INSULIN LISPRO 100 UNITS/ML, PEN SQ-INSULIN SCH ×4 (07:00→22:18)
[2020-09-05] MEDS: DAKIN'S SOLUTION 1/4 STRENGTH 1,000 ML IRRIG SOLN EXT SCH (07:22)
[2020-09-05 07:23] VITALS: BP 146/83
[2020-09-05] MEDS: SENNA/DOCUSATE TABLET PO SCH (08:25)
[2020-09-05] MEDS: CLOPIDOGREL 75 MG TABLET PO SCH (08:25)
[2020-09-05] MEDS: morphine SULFATE 10 MG/ML, 1ML IV PRN (09:24)
[2020-09-05 13:29] VITALS: BP 142/75
[2020-09-05] MEDS: VANCOMYCIN 1,300 MG in SODIUM CHLORIDE 0.9% 250 ML IV SCH (17:15)
[2020-09-05 18:58] VITALS: BP 146/84
[2020-09-05] MEDS: ENOXAPARIN 40 MG/0.4 ML SQ SCH (19:30)
[2020-09-05] MEDS: INSULIN GLARGINE 100 UNITS/ML, PEN SQ-INSULIN SCH (20:53)
[2020-09-06] MEDS: POTASSIUM CHLORIDE 20 MEQ in SODIUM CHLORIDE 0.9% 1,000 ML IV SCH ×3 (01:18→21:30)
[2020-09-06 01:28] VITALS: BP 136/74
[2020-09-06] MEDS: AMPICILLIN/SULBACTAM 3 GM in SODIUM CHLORIDE 0.9% 100 ML IV SCH (04:33)
[2020-09-06] MEDS: ASPIRIN 81 MG TABLET EC PO SCH (06:11)
[2020-09-06] MEDS: INSULIN LISPRO 100 UNITS/ML, PEN SQ-INSULIN SCH ×4 (07:00→22:21)
[2020-09-06] MEDS ORDERED: DEXTROSE 50%, 50ML SYRINGE IVPush ONE (07:00)
[2020-09-06] MEDS: DAKIN'S SOLUTION 1/4 STRENGTH 1,000 ML IRRIG SOLN EXT SCH (07:18)
[2020-09-06] MEDS: SENNA/DOCUSATE TABLET PO SCH (07:25)
[2020-09-06 07:37] VITALS: BP 137/74
[2020-09-06] MEDS: CLOPIDOGREL 75 MG TABLET PO SCH (07:42)
[2020-09-06] MEDS: D5%-0.9% NACL+KCL 20MEQ 1,000 ML IV SCH ×2 (07:54→19:53)
[2020-09-06] MEDS ORDERED: FENTANYL PF 100 MCG/2ML ONE ×2 (09:21→10:37)
[2020-09-06] MEDS ORDERED: MIDAZOLAM 1 MG/ML, 2ML ONE (09:21)
[2020-09-06] MEDS ORDERED: SUCCINYLCHOLINE 20 MG/ML, 10ML ONE (09:34)
[2020-09-06] MEDS ORDERED: CEFAZOLIN 1,000 MG ONE (09:34)
[2020-09-06] MEDS ORDERED: ONDANSETRON 2MG/ML, 2ML ONE (09:34)
[2020-09-06] MEDS ORDERED: ROCURONIUM 10 MG/ML,10ML ONE (09:34)
[2020-09-06] MEDS ORDERED: PROPOFOL 10 MG/ML, 20ML ONE (09:34)
[2020-09-06] MEDS ORDERED: KETOROLAC 30 MG/1 ML IV PRN (10:00)
[2020-09-06] MEDS ORDERED: hydrALAzine 20 MG/ML, 1ML IV PRN (10:00)
[2020-09-06] MEDS ORDERED: DIAZEPAM 5 MG/ML, 2ML IV PRN ×2 (10:00)
[2020-09-06] MEDS ORDERED: OXYcodone 5 MG/5 ML ORAL.SOL UDC PO PRN (10:00)
[2020-09-06] MEDS ORDERED: MEPERIDINE/PF 25MG/0.5ML IVPush PRN (10:00)
[2020-09-06] MEDS ORDERED: ONDANSETRON 2MG/ML, 2ML IVPush PRN (10:00)
[2020-09-06] MEDS ORDERED: LABETALOL 5MG/ML, 20ML IV PRN (10:00)
[2020-09-06] MEDS ORDERED: PROMETHAZINE 25 MG/ML, 1ML IV PRN (10:00)
[2020-09-06] MEDS ORDERED: ALBUTEROL SULFATE 2.5 MG/3 ML NPPB PRN (10:00)
[2020-09-06] MEDS ORDERED: METOCLOPRAMIDE 5 MG/ML, 2ML IV PRN (10:00)
[2020-09-06] MEDS ORDERED: ACETAMINOPHEN 1,000 MG/100 ML IV ONE (10:18)
[2020-09-06] MEDS ORDERED: OXYcodone 5 MG/5 ML ORAL.SOL UDC ONE (10:37)
[2020-09-06] MEDS: FENTANYL PF 100 MCG/2ML IV PRN ×2 (10:41→11:06)
[2020-09-06] MEDS ORDERED: HYDROmorphone 1 MG/ML, 1ML INJ ONE (11:08)
[2020-09-06] MEDS: HYDROmorphone 1 MG/ML, 1ML INJ IV PRN ×2 (11:20→11:39)
[2020-09-06 12:09] VITALS: BP 156/86
[2020-09-06] MEDS: HYDROcodone/APAP 5/325 TABLET PO PRN ×3 (14:35→22:21)
[2020-09-06 19:00] VITALS: BP 122/67
[2020-09-06] MEDS: ENOXAPARIN 40 MG/0.4 ML SQ SCH (19:54)
[2020-09-06] MEDS: INSULIN GLARGINE 100 UNITS/ML, PEN SQ-INSULIN SCH (22:20)
[2020-09-07 00:02] VITALS: BP 164/95
[2020-09-07 00:50] VITALS: BP 166/82
[2020-09-07] MEDS: HYDROcodone/APAP 5/325 TABLET PO PRN ×4 (02:38→19:31)
[2020-09-07 03:46] VITALS: BP 149/84
[2020-09-07] MEDS: D5%-0.9% NACL+KCL 20MEQ 1,000 ML IV SCH (05:35)
[2020-09-07] MEDS: ASPIRIN 81 MG TABLET EC PO SCH (05:40)
[2020-09-07 07:14] VITALS: BP 128/68
[2020-09-07] MEDS: CLOPIDOGREL 75 MG TABLET PO SCH (08:01)
[2020-09-07] MEDS: INSULIN LISPRO 100 UNITS/ML, PEN SQ-INSULIN SCH ×4 (08:04→20:58)
[2020-09-07] MEDS: POTASSIUM CHLORIDE 20 MEQ in SODIUM CHLORIDE 0.9% 1,000 ML IV SCH (08:05)
[2020-09-07] MEDS: SENNA/DOCUSATE TABLET PO SCH (08:06)
[2020-09-07] MEDS: DAKIN'S SOLUTION 1/4 STRENGTH 1,000 ML IRRIG SOLN EXT SCH (08:06)
[2020-09-07 10:47] LABS: BASOPHILS % (AUTO) 1 % (0-1); EOSINOPHILS % (AUTO) 2 % (1-7); LYMPHOCYTES % (AUTO) 13 % (22-44); MEAN CORPUSCULAR HEMOGLOBIN 25.1 pg (27.5-34.5); MEAN CORPUSCULAR HGB CONC 33.5 g/dL (33.2-36.2); MEAN PLATELET VOLUME 6.5 fL (7.4-10.4); MONOCYTES % (AUTO) 11 % (2-9); NEUTROPHILS % (AUTO) 73 % (42-75); PLATELET COUNT 465 x10^3/uL (130-400); RED BLOOD COUNT 3.38 x10^6/uL (4.38-5.82); RED CELL DISTRIBUTION WIDTH 18.1 % (9.4-14.8)
[2020-09-07 10:48] LABS: MD NO
[2020-09-07 13:59] VITALS: BP 155/73
[2020-09-07] MEDS ORDERED: VANCOMYCIN PER PHARMACY MC PRN (16:00)
[2020-09-07] MEDS ORDERED: PHARMACOKINETIC CONSULTATION MC ONE (16:30)
[2020-09-07] MEDS ORDERED: VANCOMYCIN 1,700 MG in SODIUM CHLORIDE 0.9% 250 ML IV SCH (16:30)
[2020-09-07] MEDS ORDERED: PHARMACOKINETIC MONITORING MC PRN (16:30)
[2020-09-07] MEDS ORDERED: VANCOMYCIN 1,700 MG in SODIUM CHLORIDE 0.9% 250 ML IV ONE (16:30)
[2020-09-07] MEDS: AMPICILLIN/SULBACTAM 3 GM in SODIUM CHLORIDE 0.9% 100 ML IV SCH (16:40)
[2020-09-07] MEDS ORDERED: VANCOMYCIN 1,300 MG in SODIUM CHLORIDE 0.9% 250 ML IV SCH (17:00)
[2020-09-07 18:22] VITALS: BP 141/79
[2020-09-07] MEDS: ENOXAPARIN 40 MG/0.4 ML SQ SCH (19:32)
[2020-09-07] MEDS: INSULIN GLARGINE 100 UNITS/ML, PEN SQ-INSULIN SCH (20:57)
[2020-09-08] MEDS: AMPICILLIN/SULBACTAM 3 GM in SODIUM CHLORIDE 0.9% 100 ML IV SCH ×4 (00:04→23:27)
[2020-09-08] MEDS: HYDROcodone/APAP 5/325 TABLET PO PRN ×5 (00:06→20:28)
[2020-09-08 01:22] VITALS: BP 143/76
[2020-09-08 06:11] LABS: CHLORIDE 107 mmol/L (98-107)
[2020-09-08 06:15] LABS: BASOPHILS % (AUTO) 1 % (0-1); EOSINOPHILS % (AUTO) 2 % (1-7); LYMPHOCYTES % (AUTO) 15 % (22-44); MEAN CORPUSCULAR HEMOGLOBIN 24.5 pg (27.5-34.5); MEAN CORPUSCULAR HGB CONC 32.8 g/dL (33.2-36.2); MEAN PLATELET VOLUME 6.7 fL (7.4-10.4); MONOCYTES % (AUTO) 11 % (2-9); NEUTROPHILS % (AUTO) 71 % (42-75); PLATELET COUNT 458 x10^3/uL (130-400); RED BLOOD COUNT 3.43 x10^6/uL (4.38-5.82)
[2020-09-08 06:18] LABS: ALBUMIN 1.7 g/dL (3.4-5.0); ANION GAP 6 mmol/L (5-15); CALCIUM 7.7 mg/dL (8.5-10.1); VANCOMYCIN,RANDOM 14.5 mcg/mL
[2020-09-08] MEDS: ASPIRIN 81 MG TABLET EC PO SCH (06:18)
[2020-09-08 06:38] LABS: MD NO
[2020-09-08] MEDS: INSULIN LISPRO 100 UNITS/ML, PEN SQ-INSULIN SCH ×4 (07:00→20:29)
[2020-09-08 07:17] VITALS: BP 161/82
[2020-09-08] MEDS: SENNA/DOCUSATE TABLET PO SCH (08:08)
[2020-09-08] MEDS: CLOPIDOGREL 75 MG TABLET PO SCH (08:08)
[2020-09-08] MEDS ORDERED: VANCOMYCIN 1,700 MG in SODIUM CHLORIDE 0.9% 250 ML IV ONE (12:00)
[2020-09-08] MEDS ORDERED: VANCOMYCIN 1,300 MG in SODIUM CHLORIDE 0.9% 250 ML IV SCH (12:00)
[2020-09-08 13:24] VITALS: BP 141/79
[2020-09-08] MEDS: ENOXAPARIN 40 MG/0.4 ML SQ SCH (19:30)
[2020-09-08 20:07] VITALS: BP 129/65
[2020-09-08] MEDS: INSULIN GLARGINE 100 UNITS/ML, PEN SQ-INSULIN SCH (20:30)
[2020-09-09 01:58] VITALS: BP 116/68
[2020-09-09 05:46] LABS: ANION GAP 6 mmol/L (5-15); CHLORIDE 106 mmol/L (98-107); CREATININE 0.78 mg/dL (0.7-1.3)
[2020-09-09] MEDS: VANCOMYCIN 1,300 MG in SODIUM CHLORIDE 0.9% 250 ML IV SCH (06:08)
[2020-09-09] MEDS: ASPIRIN 81 MG TABLET EC PO SCH (06:08)
[2020-09-09 06:09] LABS: BASOPHILS % (AUTO) 1 % (0-1); EOSINOPHILS % (AUTO) 2 % (1-7); LYMPHOCYTES % (AUTO) 14 % (22-44); MEAN CORPUSCULAR HEMOGLOBIN 24.5 pg (27.5-34.5); MEAN CORPUSCULAR HGB CONC 33.2 g/dL (33.2-36.2); MEAN PLATELET VOLUME 6.8 fL (7.4-10.4); MONOCYTES % (AUTO) 10 % (2-9); NEUTROPHILS % (AUTO) 73 % (42-75); PLATELET COUNT 451 x10^3/uL (130-400); RED BLOOD COUNT 3.36 x10^6/uL (4.38-5.82); RED CELL DISTRIBUTION WIDTH 17.8 % (9.4-14.8)
[2020-09-09 06:11] LABS: MD NO
[2020-09-09] MEDS: INSULIN LISPRO 100 UNITS/ML, PEN SQ-INSULIN SCH ×4 (07:00→21:03)
[2020-09-09 07:10] VITALS: BP 132/66
[2020-09-09] MEDS: CLOPIDOGREL 75 MG TABLET PO SCH (08:05)
[2020-09-09] MEDS: SENNA/DOCUSATE TABLET PO SCH (08:06)
[2020-09-09] MEDS: AMPICILLIN/SULBACTAM 3 GM in SODIUM CHLORIDE 0.9% 100 ML IV SCH ×2 (08:06→16:57)
[2020-09-09] MEDS: HYDROcodone/APAP 5/325 TABLET PO PRN ×2 (08:16→20:56)
[2020-09-09 13:00] VITALS: BP 140/80
[2020-09-09 18:43] VITALS: BP 138/73
[2020-09-09] MEDS: ENOXAPARIN 40 MG/0.4 ML SQ SCH (20:54)
[2020-09-09] MEDS: INSULIN GLARGINE 100 UNITS/ML, PEN SQ-INSULIN SCH (21:04)
[2020-09-10] MEDS: VANCOMYCIN 1,300 MG in SODIUM CHLORIDE 0.9% 250 ML IV SCH ×2 (00:01→18:04)
[2020-09-10 01:35] VITALS: BP 115/72
[2020-09-10] MEDS: AMPICILLIN/SULBACTAM 3 GM in SODIUM CHLORIDE 0.9% 100 ML IV SCH ×3 (02:00→17:27)
[2020-09-10 05:37] LABS: BASOPHILS % (AUTO) 1 % (0-1); EOSINOPHILS % (AUTO) 1 % (1-7); LYMPHOCYTES % (AUTO) 14 % (22-44); MEAN CORPUSCULAR HEMOGLOBIN 24.8 pg (27.5-34.5); MEAN CORPUSCULAR HGB CONC 33.4 g/dL (33.2-36.2); MEAN PLATELET VOLUME 6.5 fL (7.4-10.4); MONOCYTES % (AUTO) 11 % (2-9); NEUTROPHILS % (AUTO) 74 % (42-75); PLATELET COUNT 427 x10^3/uL (130-400); RED BLOOD COUNT 3.21 x10^6/uL (4.38-5.82); RED CELL DISTRIBUTION WIDTH 17.3 % (9.4-14.8)
[2020-09-10 06:01] LABS: MD NO
[2020-09-10] MEDS: ASPIRIN 81 MG TABLET EC PO SCH (06:26)
[2020-09-10] MEDS: HYDROcodone/APAP 5/325 TABLET PO PRN ×3 (06:28→21:37)
[2020-09-10 06:58] LABS: ALBUMIN 1.6 g/dL (3.4-5.0); ANION GAP 7 mmol/L (5-15); CALCIUM 7.6 mg/dL (8.5-10.1); CHLORIDE 108 mmol/L (98-107); CREATININE 0.66 mg/dL (0.7-1.3)
[2020-09-10] MEDS: INSULIN LISPRO 100 UNITS/ML, PEN SQ-INSULIN SCH ×4 (07:00→21:38)
[2020-09-10 07:16] VITALS: BP 133/75
[2020-09-10] MEDS: SENNA/DOCUSATE TABLET PO SCH (08:16)
[2020-09-10] MEDS: CLOPIDOGREL 75 MG TABLET PO SCH (08:16)
[2020-09-10 12:54] VITALS: BP 140/78
[2020-09-10 19:46] VITALS: BP 143/82
[2020-09-10] MEDS: ENOXAPARIN 40 MG/0.4 ML SQ SCH (21:14)
[2020-09-10] MEDS: INSULIN GLARGINE 100 UNITS/ML, PEN SQ-INSULIN SCH (21:39)
[2020-09-11 00:57] VITALS: BP 137/82
[2020-09-11] MEDS: AMPICILLIN/SULBACTAM 3 GM in SODIUM CHLORIDE 0.9% 100 ML IV SCH ×3 (01:48→17:48)
[2020-09-11 04:43] LABS: CREATININE 0.92 mg/dL (0.7-1.3)
[2020-09-11] MEDS: ASPIRIN 81 MG TABLET EC PO SCH (06:14)
[2020-09-11] MEDS: INSULIN LISPRO 100 UNITS/ML, PEN SQ-INSULIN SCH ×4 (07:00→21:00)
[2020-09-11] MEDS: CLOPIDOGREL 75 MG TABLET PO SCH (08:06)
[2020-09-11] MEDS: SENNA/DOCUSATE TABLET PO SCH (08:06)
[2020-09-11] MEDS: IRON SUCROSE COMPLEX 100MG/5ML IV SCH (08:06)
[2020-09-11 10:00] VITALS: BP 144/83
[2020-09-11] MEDS: HYDROcodone/APAP 5/325 TABLET PO PRN ×2 (11:38→21:48)
[2020-09-11] MEDS: VANCOMYCIN 1,300 MG in SODIUM CHLORIDE 0.9% 250 ML IV SCH (11:38)
[2020-09-11 15:58] VITALS: BP 135/77
[2020-09-11 18:56] VITALS: BP 142/82
[2020-09-11] MEDS: ENOXAPARIN 40 MG/0.4 ML SQ SCH (19:37)
[2020-09-11] MEDS: INSULIN GLARGINE 100 UNITS/ML, PEN SQ-INSULIN SCH (21:47)
[2020-09-12 01:14] VITALS: BP 123/77
[2020-09-12] MEDS: AMPICILLIN/SULBACTAM 3 GM in SODIUM CHLORIDE 0.9% 100 ML IV SCH ×3 (01:58→17:31)
[2020-09-12 05:57] LABS: BASOPHILS % (AUTO) 2 % (0-1); EOSINOPHILS % (AUTO) 4 % (1-7); LYMPHOCYTES % (AUTO) 23 % (22-44); MEAN CORPUSCULAR HEMOGLOBIN 24.2 pg (27.5-34.5); MEAN CORPUSCULAR HGB CONC 32.8 g/dL (33.2-36.2); MEAN PLATELET VOLUME 6.5 fL (7.4-10.4); MONOCYTES % (AUTO) 12 % (2-9); NEUTROPHILS % (AUTO) 60 % (42-75); PLATELET COUNT 422 x10^3/uL (130-400); RED BLOOD COUNT 3.36 x10^6/uL (4.38-5.82); RED CELL DISTRIBUTION WIDTH 17.9 % (9.4-14.8)
[2020-09-12 05:59] LABS: MD NO
[2020-09-12 06:07] LABS: CHLORIDE 108 mmol/L (98-107)
[2020-09-12] MEDS: VANCOMYCIN 1,300 MG in SODIUM CHLORIDE 0.9% 250 ML IV SCH (06:15)
[2020-09-12] MEDS: HYDROcodone/APAP 5/325 TABLET PO PRN ×2 (06:15→21:58)
[2020-09-12] MEDS: ASPIRIN 81 MG TABLET EC PO SCH (06:15)
[2020-09-12 06:16] LABS: ANION GAP 8 mmol/L (5-15); CREATININE 0.75 mg/dL (0.7-1.3); VANCOMYCIN,TROUGH 17.4 mcg/mL (5.0-10.0)
[2020-09-12] MEDS: INSULIN LISPRO 100 UNITS/ML, PEN SQ-INSULIN SCH ×4 (06:58→21:00)
[2020-09-12 07:15] VITALS: BP 125/75
[2020-09-12] MEDS: CLOPIDOGREL 75 MG TABLET PO SCH (08:07)
[2020-09-12] MEDS: IRON SUCROSE COMPLEX 100MG/5ML IV SCH (08:07)
[2020-09-12] MEDS: SENNA/DOCUSATE TABLET PO SCH (08:07)
[2020-09-12 12:05] VITALS: BP 141/82
[2020-09-12 18:29] VITALS: BP 142/75
[2020-09-12] MEDS: ENOXAPARIN 40 MG/0.4 ML SQ SCH (20:02)
[2020-09-12] MEDS: INSULIN GLARGINE 100 UNITS/ML, PEN SQ-INSULIN SCH (21:57)
[2020-09-13] MEDS: VANCOMYCIN 1,300 MG in SODIUM CHLORIDE 0.9% 250 ML IV SCH ×2 (00:01→17:13)
[2020-09-13 00:38] VITALS: BP 127/70
[2020-09-13] MEDS: AMPICILLIN/SULBACTAM 3 GM in SODIUM CHLORIDE 0.9% 100 ML IV SCH ×3 (02:01→19:54)
[2020-09-13] MEDS: ASPIRIN 81 MG TABLET EC PO SCH (06:24)
[2020-09-13 06:45] VITALS: BP 122/70
[2020-09-13] MEDS: IRON SUCROSE COMPLEX 100MG/5ML IV SCH (08:34)
[2020-09-13] MEDS: INSULIN LISPRO 100 UNITS/ML, PEN SQ-INSULIN SCH ×4 (08:34→21:00)
[2020-09-13] MEDS: SENNA/DOCUSATE TABLET PO SCH (08:35)
[2020-09-13] MEDS: CLOPIDOGREL 75 MG TABLET PO SCH (08:35)
[2020-09-13 14:30] VITALS: BP 144/76
[2020-09-13] MEDS: HYDROcodone/APAP 5/325 TABLET PO PRN ×2 (17:13→21:48)
[2020-09-13 19:04] VITALS: BP 144/77
[2020-09-13] MEDS: ENOXAPARIN 40 MG/0.4 ML SQ SCH (19:54)
[2020-09-13] MEDS: INSULIN GLARGINE 100 UNITS/ML, PEN SQ-INSULIN SCH (21:48)
[2020-09-14 01:07] VITALS: BP 129/78
[2020-09-14] MEDS: AMPICILLIN/SULBACTAM 3 GM in SODIUM CHLORIDE 0.9% 100 ML IV SCH ×3 (03:34→21:09)
[2020-09-14 05:44] LABS: BASOPHILS % (AUTO) 1 % (0-1); EOSINOPHILS % (AUTO) 3 % (1-7); LYMPHOCYTES % (AUTO) 22 % (22-44); MEAN CORPUSCULAR HEMOGLOBIN 24.5 pg (27.5-34.5); MEAN CORPUSCULAR HGB CONC 32.9 g/dL (33.2-36.2); MEAN PLATELET VOLUME 6.6 fL (7.4-10.4); MONOCYTES % (AUTO) 12 % (2-9); NEUTROPHILS % (AUTO) 62 % (42-75); PLATELET COUNT 422 x10^3/uL (130-400); RED BLOOD COUNT 3.25 x10^6/uL (4.38-5.82); RED CELL DISTRIBUTION WIDTH 17.5 % (9.4-14.8)
[2020-09-14 05:46] LABS: MD NO
[2020-09-14 05:57] LABS: ALBUMIN 1.8 g/dL (3.4-5.0); ANION GAP 7 mmol/L (5-15); CALCIUM 7.9 mg/dL (8.5-10.1); CHLORIDE 109 mmol/L (98-107); CREATININE 0.68 mg/dL (0.7-1.3)
[2020-09-14] MEDS ORDERED: POTASSIUM CHLORIDE 20 MEQ TAB.ER.PRT PO ONE (06:30)
[2020-09-14] MEDS: ASPIRIN 81 MG TABLET EC PO SCH (06:30)
[2020-09-14] MEDS: HYDROcodone/APAP 5/325 TABLET PO PRN ×3 (06:30→17:46)
[2020-09-14] MEDS: INSULIN LISPRO 100 UNITS/ML, PEN SQ-INSULIN SCH ×4 (06:33→21:00)
[2020-09-14 07:57] VITALS: BP 117/71
[2020-09-14] MEDS: SENNA/DOCUSATE TABLET PO SCH (09:00)
[2020-09-14] MEDS: IRON SUCROSE COMPLEX 100MG/5ML IV SCH (10:17)
[2020-09-14] MEDS: CLOPIDOGREL 75 MG TABLET PO SCH (10:17)
[2020-09-14] MEDS: VANCOMYCIN 1,300 MG in SODIUM CHLORIDE 0.9% 250 ML IV SCH (13:17)
[2020-09-14 14:57] VITALS: BP 113/71
[2020-09-14 18:50] VITALS: BP 113/67
[2020-09-14] MEDS: ENOXAPARIN 40 MG/0.4 ML SQ SCH (20:12)
[2020-09-14] MEDS: INSULIN GLARGINE 100 UNITS/ML, PEN SQ-INSULIN SCH (20:13)
[2020-09-15 01:24] VITALS: BP 116/69
[2020-09-15] MEDS: AMPICILLIN/SULBACTAM 3 GM in SODIUM CHLORIDE 0.9% 100 ML IV SCH ×3 (04:42→20:15)
[2020-09-15] MEDS: HYDROcodone/APAP 5/325 TABLET PO PRN (04:47)
[2020-09-15] MEDS: VANCOMYCIN 1,300 MG in SODIUM CHLORIDE 0.9% 250 ML IV SCH (06:01)
[2020-09-15] MEDS: ASPIRIN 81 MG TABLET EC PO SCH (06:01)
[2020-09-15] MEDS: INSULIN LISPRO 100 UNITS/ML, PEN SQ-INSULIN SCH ×4 (07:00→21:00)
[2020-09-15] MEDS: IRON SUCROSE COMPLEX 100MG/5ML IV SCH (08:15)
[2020-09-15] MEDS: CLOPIDOGREL 75 MG TABLET PO SCH (08:15)
[2020-09-15] MEDS: SENNA/DOCUSATE TABLET PO SCH (08:15)
[2020-09-15 08:20] VITALS: BP 121/76
[2020-09-15 14:15] VITALS: BP 133/85
[2020-09-15 19:26] VITALS: BP 144/84
[2020-09-15] MEDS: ENOXAPARIN 40 MG/0.4 ML SQ SCH (20:15)
[2020-09-15] MEDS ORDERED: INSULIN GLARGINE 100 UNITS/ML, PEN SQ-INSULIN SCH (21:00)
[2020-09-16] MEDS: VANCOMYCIN 1,300 MG in SODIUM CHLORIDE 0.9% 250 ML IV SCH (00:28)
[2020-09-16 01:01] VITALS: BP 127/73
[2020-09-16] MEDS: ONDANSETRON 2MG/ML, 2ML IVPush PRN ×3 (03:02→15:54)
[2020-09-16] MEDS: HYDROcodone/APAP 5/325 TABLET PO PRN ×2 (03:30→20:11)
[2020-09-16] MEDS: AMPICILLIN/SULBACTAM 3 GM in SODIUM CHLORIDE 0.9% 100 ML IV SCH ×2 (04:51→11:15)
[2020-09-16] MEDS: INSULIN LISPRO 100 UNITS/ML, PEN SQ-INSULIN SCH ×4 (07:00→19:55)
[2020-09-16 07:20] VITALS: BP 155/90
[2020-09-16] MEDS: ASPIRIN 81 MG TABLET EC PO SCH (08:12)
[2020-09-16] MEDS: SENNA/DOCUSATE TABLET PO SCH (08:12)
[2020-09-16] MEDS: CLOPIDOGREL 75 MG TABLET PO SCH (08:12)
[2020-09-16 10:41] LABS: ANION GAP 7 mmol/L (5-15); CALCIUM 8.1 mg/dL (8.5-10.1); CHLORIDE 107 mmol/L (98-107)
[2020-09-16 12:18] LABS: BASOPHILS % (AUTO) 1 % (0-1); EOSINOPHILS % (AUTO) 4 % (1-7); LYMPHOCYTES % (AUTO) 16 % (22-44); MEAN CORPUSCULAR HEMOGLOBIN 24.8 pg (27.5-34.5); MEAN CORPUSCULAR HGB CONC 32.9 g/dL (33.2-36.2); MEAN PLATELET VOLUME 6.7 fL (7.4-10.4); MONOCYTES % (AUTO) 12 % (2-9); NEUTROPHILS % (AUTO) 67 % (42-75); PLATELET COUNT 474 x10^3/uL (130-400); RED BLOOD COUNT 3.55 x10^6/uL (4.38-5.82); RED CELL DISTRIBUTION WIDTH 19.6 % (9.4-14.8)
[2020-09-16 12:19] LABS: MD NO
[2020-09-16 13:10] VITALS: BP 151/83
[2020-09-16] MEDS: D5%-LACTATED RINGERS 1,000 ML IV SCH (15:51)
[2020-09-16 16:28] LABS: CLOSTRIDIUM DIFFICILE ANTIGEN NEGATIVE; CLOSTRIDIUM DIFFICILE TOXIN NEGATIVE (Negative)
[2020-09-16] MEDS: MEROPENEM 1 GM in SODIUM CHLORIDE 0.9% 100 ML IV SCH (16:57)
[2020-09-16] MEDS ORDERED: LOPERAMIDE 1 MG/5 ML, 10ML UDC PO ONE (17:00)
[2020-09-16] MEDS ORDERED: LOPERAMIDE 2 MG CAPSULE ONE (17:03)
[2020-09-16] MEDS ORDERED: LOPERAMIDE 2 MG CAPSULE PO ONE (17:30)
[2020-09-16 19:59] VITALS: BP 152/82
[2020-09-16] MEDS: ENOXAPARIN 40 MG/0.4 ML SQ SCH (20:07)
[2020-09-17 00:47] VITALS: BP 124/75
[2020-09-17] MEDS: MEROPENEM 1 GM in SODIUM CHLORIDE 0.9% 100 ML IV SCH ×3 (01:58→16:58)
[2020-09-17 04:45] LABS: CREATININE 0.77 mg/dL (0.7-1.3)
[2020-09-17] MEDS: D5%-LACTATED RINGERS 1,000 ML IV SCH (05:21)
[2020-09-17] MEDS: ASPIRIN 81 MG TABLET EC PO SCH (06:00)
[2020-09-17] MEDS: INSULIN LISPRO 100 UNITS/ML, PEN SQ-INSULIN SCH ×4 (06:14→21:00)
[2020-09-17 07:10] VITALS: BP 126/71
[2020-09-17] MEDS: SENNA/DOCUSATE TABLET PO SCH (08:26)
[2020-09-17] MEDS: CLOPIDOGREL 75 MG TABLET PO SCH (08:26)
[2020-09-17 09:36] LABS: HCT (SEDRATE) 29.1 % (39.2-51.8)
[2020-09-17 09:56] LABS: C-REACTIVE PROTEIN, QUANT 8.6 mg/dL (0.02-0.49)
[2020-09-17 14:35] VITALS: BP 129/78
[2020-09-17] MEDS: HYDROcodone/APAP 5/325 TABLET PO PRN ×2 (15:01→21:38)
[2020-09-17 20:38] VITALS: BP 119/69
[2020-09-17] MEDS: ENOXAPARIN 40 MG/0.4 ML SQ SCH (21:38)
[2020-09-18] MEDS: MEROPENEM 1 GM in SODIUM CHLORIDE 0.9% 100 ML IV SCH ×3 (01:11→16:58)
[2020-09-18 02:34] VITALS: BP 119/74
[2020-09-18 05:38] LABS: BASOPHILS % (AUTO) 1 % (0-1); EOSINOPHILS % (AUTO) 4 % (1-7); LYMPHOCYTES % (AUTO) 30 % (22-44); MEAN CORPUSCULAR HGB CONC 32.8 g/dL (33.2-36.2); MEAN PLATELET VOLUME 6.7 fL (7.4-10.4); MONOCYTES % (AUTO) 15 % (2-9); NEUTROPHILS % (AUTO) 51 % (42-75); PLATELET COUNT 455 x10^3/uL (130-400); RED BLOOD COUNT 3.41 x10^6/uL (4.38-5.82); RED CELL DISTRIBUTION WIDTH 20.8 % (9.4-14.8)
[2020-09-18 05:47] LABS: ANION GAP 7 mmol/L (5-15); CALCIUM 7.7 mg/dL (8.5-10.1); CHLORIDE 107 mmol/L (98-107)
[2020-09-18 05:49] LABS: CREATININE 0.88 mg/dL (0.7-1.3)
[2020-09-18 05:51] LABS: MD NO
[2020-09-18] MEDS: ASPIRIN 81 MG TABLET EC PO SCH (06:09)
[2020-09-18] MEDS: HYDROcodone/APAP 5/325 TABLET PO PRN ×4 (06:10→21:05)
[2020-09-18] MEDS: INSULIN LISPRO 100 UNITS/ML, PEN SQ-INSULIN SCH ×4 (06:12→21:04)
[2020-09-18 07:28] VITALS: BP 130/74
[2020-09-18] MEDS ORDERED: FUROSEMIDE 20 MG/2 ML IV ONE (07:30)
[2020-09-18] MEDS: CLOPIDOGREL 75 MG TABLET PO SCH (07:58)
[2020-09-18] MEDS: SENNA/DOCUSATE TABLET PO SCH (07:58)
[2020-09-18 13:38] VITALS: BP 134/76
[2020-09-18] MEDS: ENOXAPARIN 40 MG/0.4 ML SQ SCH (21:04)
[2020-09-18 21:10] VITALS: BP 124/78
[2020-09-19 00:46] VITALS: BP 121/78
[2020-09-19] MEDS: MEROPENEM 1 GM in SODIUM CHLORIDE 0.9% 100 ML IV SCH ×3 (01:15→16:58)
[2020-09-19] MEDS: HYDROcodone/APAP 5/325 TABLET PO PRN ×4 (01:16→20:26)
[2020-09-19] MEDS: ASPIRIN 81 MG TABLET EC PO SCH (05:31)
[2020-09-19] MEDS: INSULIN LISPRO 100 UNITS/ML, PEN SQ-INSULIN SCH ×4 (07:00→20:19)
[2020-09-19 07:39] VITALS: BP 124/80
[2020-09-19] MEDS: CLOPIDOGREL 75 MG TABLET PO SCH (08:39)
[2020-09-19] MEDS: SENNA/DOCUSATE TABLET PO SCH (08:40)
[2020-09-19] MEDS ORDERED: MUPIROCIN OINT 2%, 22GM TP SCH (10:30)
[2020-09-19 13:01] VITALS: BP 136/81
[2020-09-19] MEDS ORDERED: LIDOCAINE 1%, 10ML ONE (13:11)
[2020-09-19 19:09] VITALS: BP 142/80
[2020-09-19] MEDS: ENOXAPARIN 40 MG/0.4 ML SQ SCH (20:27)
[2020-09-19] MEDS: MUPIROCIN OINT 2%, 22GM TP SCH (20:45)
[2020-09-20] MEDS: MEROPENEM 1 GM in SODIUM CHLORIDE 0.9% 100 ML IV SCH ×3 (01:33→17:43)
[2020-09-20 02:19] VITALS: BP 143/84
[2020-09-20 05:48] LABS: BASOPHILS % (AUTO) 1 % (0-1); EOSINOPHILS % (AUTO) 5 % (1-7); LYMPHOCYTES % (AUTO) 26 % (22-44); MEAN CORPUSCULAR HEMOGLOBIN 24.9 pg (27.5-34.5); MEAN CORPUSCULAR HGB CONC 32.6 g/dL (33.2-36.2); MEAN PLATELET VOLUME 6.8 fL (7.4-10.4); MONOCYTES % (AUTO) 14 % (2-9); NEUTROPHILS % (AUTO) 53 % (42-75); PLATELET COUNT 444 x10^3/uL (130-400); RED BLOOD COUNT 3.42 x10^6/uL (4.38-5.82)
[2020-09-20 05:55] LABS: ALBUMIN 1.8 g/dL (3.4-5.0); ANION GAP 3 mmol/L (5-15); CALCIUM 7.8 mg/dL (8.5-10.1); CHLORIDE 106 mmol/L (98-107)
[2020-09-20 05:57] LABS: MD NO
[2020-09-20 06:00] LABS: ALANINE AMINOTRANSFERASE 10 U/L (12-78); ALKALINE PHOSPHATASE 179 U/L (45-117); BILIRUBIN,TOTAL 0.2 mg/dL (0.2-1.0); CREATININE 0.73 mg/dL (0.7-1.3); TOTAL PROTEIN 5.5 g/dL (6.4-8.2)
[2020-09-20] MEDS: ASPIRIN 81 MG TABLET EC PO SCH (06:00)
[2020-09-20] MEDS: HYDROcodone/APAP 5/325 TABLET PO PRN ×2 (06:18→21:17)
[2020-09-20] MEDS: INSULIN LISPRO 100 UNITS/ML, PEN SQ-INSULIN SCH ×4 (07:00→20:46)
[2020-09-20 07:15] VITALS: BP 125/74
[2020-09-20] MEDS: CLOPIDOGREL 75 MG TABLET PO SCH (09:16)
[2020-09-20] MEDS: MUPIROCIN OINT 2%, 22GM TP SCH ×2 (09:16→20:47)
[2020-09-20] MEDS: SENNA/DOCUSATE TABLET PO SCH (09:16)
[2020-09-20 13:23] VITALS: BP 138/76
[2020-09-20 18:42] VITALS: BP 162/84
[2020-09-20] MEDS: ENOXAPARIN 40 MG/0.4 ML SQ SCH (20:47)
[2020-09-21 00:26] VITALS: BP 156/87
[2020-09-21] MEDS: HYDROcodone/APAP 5/325 TABLET PO PRN ×2 (01:34→06:32)
[2020-09-21] MEDS: MEROPENEM 1 GM in SODIUM CHLORIDE 0.9% 100 ML IV SCH ×2 (01:36→09:59)
[2020-09-21 05:26] LABS: BASOPHILS % (AUTO) 1 % (0-1); EOSINOPHILS % (AUTO) 5 % (1-7); LYMPHOCYTES % (AUTO) 25 % (22-44); MEAN CORPUSCULAR HEMOGLOBIN 24.8 pg (27.5-34.5); MEAN CORPUSCULAR HGB CONC 32.8 g/dL (33.2-36.2); MEAN PLATELET VOLUME 6.6 fL (7.4-10.4); MONOCYTES % (AUTO) 12 % (2-9); NEUTROPHILS % (AUTO) 57 % (42-75); PLATELET COUNT 491 x10^3/uL (130-400); RED BLOOD COUNT 3.51 x10^6/uL (4.38-5.82); RED CELL DISTRIBUTION WIDTH 20.9 % (9.4-14.8)
[2020-09-21 05:28] LABS: MD NO
[2020-09-21 05:37] LABS: CALCIUM 7.6 mg/dL (8.5-10.1); CHLORIDE 106 mmol/L (98-107)
[2020-09-21 05:44] LABS: ALANINE AMINOTRANSFERASE 14 U/L (12-78); ALBUMIN 1.9 g/dL (3.4-5.0); ALKALINE PHOSPHATASE 189 U/L (45-117); ANION GAP 5 mmol/L (5-15); BILIRUBIN,TOTAL 0.3 mg/dL (0.2-1.0); CREATININE 0.64 mg/dL (0.7-1.3); TOTAL PROTEIN 5.5 g/dL (6.4-8.2)
[2020-09-21] MEDS: ASPIRIN 81 MG TABLET EC PO SCH (06:00)
[2020-09-21] MEDS: INSULIN LISPRO 100 UNITS/ML, PEN SQ-INSULIN SCH ×4 (07:00→21:00)
[2020-09-21 08:00] VITALS: BP 128/80
[2020-09-21] MEDS: SENNA/DOCUSATE TABLET PO SCH (09:19)
[2020-09-21] MEDS: CLOPIDOGREL 75 MG TABLET PO SCH (09:19)
[2020-09-21] MEDS: ONDANSETRON 2MG/ML, 2ML IVPush PRN ×3 (09:23→21:35)
[2020-09-21] MEDS: MUPIROCIN OINT 2%, 22GM TP SCH ×2 (09:59→21:47)
[2020-09-21 13:08] VITALS: BP 139/85
[2020-09-21] MEDS ORDERED: MEROPENEM 1 GM in SODIUM CHLORIDE 0.9% 100 ML IV SCH (17:00)
[2020-09-21 19:13] VITALS: BP 137/85
[2020-09-21] MEDS: ENOXAPARIN 40 MG/0.4 ML SQ SCH (21:37)
[2020-09-22 01:20] VITALS: BP 153/85
[2020-09-22] MEDS: ASPIRIN 81 MG TABLET EC PO SCH (06:00)
[2020-09-22] MEDS: HYDROcodone/APAP 5/325 TABLET PO PRN ×2 (06:14→20:50)
[2020-09-22] MEDS: ONDANSETRON 2MG/ML, 2ML IVPush PRN ×3 (06:14→20:49)
[2020-09-22 06:19] LABS: HCT (SEDRATE) 32.3 % (39.2-51.8)
[2020-09-22 06:23] LABS: BASOPHILS % (AUTO) 1 % (0-1); EOSINOPHILS % (AUTO) 1 % (1-7); LYMPHOCYTES % (AUTO) 12 % (22-44); MEAN CORPUSCULAR HGB CONC 32.8 g/dL (33.2-36.2); MEAN PLATELET VOLUME 6.8 fL (7.4-10.4); MONOCYTES % (AUTO) 7 % (2-9); NEUTROPHILS % (AUTO) 80 % (42-75); PLATELET COUNT 560 x10^3/uL (130-400); RED BLOOD COUNT 4.34 x10^6/uL (4.38-5.82)
[2020-09-22 06:30] LABS: ALBUMIN 2.1 g/dL (3.4-5.0); ANION GAP 7 mmol/L (5-15); CALCIUM 8.6 mg/dL (8.5-10.1); CHLORIDE 104 mmol/L (98-107)
[2020-09-22 06:37] LABS: ALANINE AMINOTRANSFERASE 14 U/L (12-78); ALKALINE PHOSPHATASE 176 U/L (45-117); BILIRUBIN,TOTAL 0.4 mg/dL (0.2-1.0); CREATININE 0.67 mg/dL (0.7-1.3); TOTAL PROTEIN 5.9 g/dL (6.4-8.2)
[2020-09-22 06:42] LABS: MD NO
[2020-09-22] MEDS: INSULIN LISPRO 100 UNITS/ML, PEN SQ-INSULIN SCH ×4 (07:00→20:56)
[2020-09-22 07:30] VITALS: BP 135/80
[2020-09-22] MEDS: metFORMIN XR 500 MG TAB.ER.24H PO SCH (08:20)
[2020-09-22] MEDS: CLOPIDOGREL 75 MG TABLET PO SCH (08:21)
[2020-09-22] MEDS: SENNA/DOCUSATE TABLET PO SCH (08:21)
[2020-09-22] MEDS: MUPIROCIN OINT 2%, 22GM TP SCH ×2 (11:26→21:00)
[2020-09-22 13:10] VITALS: BP 113/68
[2020-09-22 18:44] VITALS: BP 156/93
[2020-09-22] MEDS: ENOXAPARIN 40 MG/0.4 ML SQ SCH (20:48)
[2020-09-23 01:04] VITALS: BP 115/69
[2020-09-23 05:44] LABS: CREATININE 0.78 mg/dL (0.7-1.3)
[2020-09-23] MEDS: HYDROcodone/APAP 5/325 TABLET PO PRN ×2 (06:16→21:15)
[2020-09-23] MEDS: ASPIRIN 81 MG TABLET EC PO SCH (06:16)
[2020-09-23] MEDS: INSULIN LISPRO 100 UNITS/ML, PEN SQ-INSULIN SCH ×4 (07:00→21:00)
[2020-09-23 07:40] VITALS: BP 118/73
[2020-09-23] MEDS: metFORMIN XR 500 MG TAB.ER.24H PO SCH (08:24)
[2020-09-23] MEDS: SENNA/DOCUSATE TABLET PO SCH (08:24)
[2020-09-23] MEDS: CLOPIDOGREL 75 MG TABLET PO SCH (08:24)
[2020-09-23] MEDS: MUPIROCIN OINT 2%, 22GM TP SCH ×2 (08:25→21:00)
[2020-09-23 14:45] VITALS: BP 145/79
[2020-09-23 19:15] VITALS: BP 125/73
[2020-09-23] MEDS: ENOXAPARIN 40 MG/0.4 ML SQ SCH (21:14)
[2020-09-24 01:14] VITALS: BP 125/72
[2020-09-24 05:13] LABS: BASOPHILS % (AUTO) 1 % (0-1); EOSINOPHILS % (AUTO) 3 % (1-7); LYMPHOCYTES % (AUTO) 21 % (22-44); MEAN CORPUSCULAR HGB CONC 31.9 g/dL (33.2-36.2); MEAN PLATELET VOLUME 6.6 fL (7.4-10.4); MONOCYTES % (AUTO) 11 % (2-9); NEUTROPHILS % (AUTO) 64 % (42-75); PLATELET COUNT 489 x10^3/uL (130-400); RED BLOOD COUNT 4.05 x10^6/uL (4.38-5.82); RED CELL DISTRIBUTION WIDTH 20.4 % (9.4-14.8)
[2020-09-24 05:15] LABS: MD NO
[2020-09-24 05:26] LABS: CHLORIDE 105 mmol/L (98-107)
[2020-09-24 05:39] LABS: ANION GAP 5 mmol/L (5-15); CALCIUM 8.2 mg/dL (8.5-10.1); CREATININE 0.76 mg/dL (0.7-1.3)
[2020-09-24] MEDS: ASPIRIN 81 MG TABLET EC PO SCH (06:06)
[2020-09-24] MEDS: INSULIN LISPRO 100 UNITS/ML, PEN SQ-INSULIN SCH ×4 (07:00→20:41)
[2020-09-24 07:50] VITALS: BP 136/79
[2020-09-24] MEDS: CLOPIDOGREL 75 MG TABLET PO SCH (08:39)
[2020-09-24] MEDS: metFORMIN XR 500 MG TAB.ER.24H PO SCH (08:39)
[2020-09-24] MEDS: SENNA/DOCUSATE TABLET PO SCH (08:40)
[2020-09-24 13:25] VITALS: BP 157/84
[2020-09-24] MEDS: MUPIROCIN OINT 2%, 22GM TP SCH ×2 (15:09→20:31)
[2020-09-24] MEDS ORDERED: METHYLNALTREXONE 12 MG/0.6 ML SYR SQ ONE (16:00)
[2020-09-24] MEDS: HYDROcodone/APAP 5/325 TABLET PO PRN (16:23)
[2020-09-24 19:49] VITALS: BP 155/91
[2020-09-24] MEDS: ENOXAPARIN 40 MG/0.4 ML SQ SCH (20:30)
[2020-09-24] MEDS: ONDANSETRON 2MG/ML, 2ML IVPush PRN (20:30)
[2020-09-25 02:49] VITALS: BP 149/84
[2020-09-25 05:38] LABS: BASOPHILS % (AUTO) 1 % (0-1); EOSINOPHILS % (AUTO) 1 % (1-7); LYMPHOCYTES % (AUTO) 18 % (22-44); MEAN CORPUSCULAR HEMOGLOBIN 24.7 pg (27.5-34.5); MEAN CORPUSCULAR HGB CONC 32.7 g/dL (33.2-36.2); MEAN PLATELET VOLUME 6.6 fL (7.4-10.4); MONOCYTES % (AUTO) 10 % (2-9); NEUTROPHILS % (AUTO) 70 % (42-75); PLATELET COUNT 493 x10^3/uL (130-400); RED BLOOD COUNT 4.29 x10^6/uL (4.38-5.82); RED CELL DISTRIBUTION WIDTH 20.2 % (9.4-14.8)
[2020-09-25 05:47] LABS: MD NO
[2020-09-25 05:51] LABS: ALANINE AMINOTRANSFERASE 9 U/L (12-78); ALBUMIN 2.3 g/dL (3.4-5.0); ANION GAP 6 mmol/L (5-15); CALCIUM 8.5 mg/dL (8.5-10.1); CHLORIDE 104 mmol/L (98-107); CREATININE 0.65 mg/dL (0.7-1.3)
[2020-09-25 05:53] LABS: ALKALINE PHOSPHATASE 146 U/L (45-117); BILIRUBIN,TOTAL 0.4 mg/dL (0.2-1.0); TOTAL PROTEIN 5.9 g/dL (6.4-8.2)
[2020-09-25] MEDS: ASPIRIN 81 MG TABLET EC PO SCH (06:23)
[2020-09-25] MEDS: HYDROcodone/APAP 5/325 TABLET PO PRN ×2 (06:24→21:23)
[2020-09-25] MEDS: INSULIN LISPRO 100 UNITS/ML, PEN SQ-INSULIN SCH ×4 (07:00→21:38)
[2020-09-25 07:21] VITALS: BP 121/70
[2020-09-25] MEDS: SENNA/DOCUSATE TABLET PO SCH (09:23)
[2020-09-25] MEDS: CLOPIDOGREL 75 MG TABLET PO SCH (09:23)
[2020-09-25] MEDS: metFORMIN XR 500 MG TAB.ER.24H PO SCH (09:23)
[2020-09-25] MEDS: MUPIROCIN OINT 2%, 22GM TP SCH ×2 (09:24→21:23)
[2020-09-25 12:06] VITALS: BP 119/73
[2020-09-25 19:19] VITALS: BP 134/76
[2020-09-25] MEDS: ENOXAPARIN 40 MG/0.4 ML SQ SCH (21:24)
[2020-09-26 02:15] VITALS: BP 131/84
[2020-09-26 02:49] VITALS: BP 138/78
[2020-09-26 05:32] LABS: ANION GAP 5 mmol/L (5-15); CALCIUM 8.4 mg/dL (8.5-10.1); CHLORIDE 105 mmol/L (98-107)
[2020-09-26 05:35] LABS: CREATININE 0.68 mg/dL (0.7-1.3)
[2020-09-26] MEDS: ASPIRIN 81 MG TABLET EC PO SCH (06:17)
[2020-09-26] MEDS: INSULIN LISPRO 100 UNITS/ML, PEN SQ-INSULIN SCH ×4 (06:19→21:05)
[2020-09-26] MEDS: HYDROcodone/APAP 5/325 TABLET PO PRN ×2 (06:22→16:55)
[2020-09-26 08:02] VITALS: BP 117/76
[2020-09-26] MEDS: CLOPIDOGREL 75 MG TABLET PO SCH (09:17)
[2020-09-26] MEDS: MUPIROCIN OINT 2%, 22GM TP SCH ×2 (09:17→21:06)
[2020-09-26] MEDS: SENNA/DOCUSATE TABLET PO SCH (09:17)
[2020-09-26] MEDS: metFORMIN XR 500 MG TAB.ER.24H PO SCH (09:17)
[2020-09-26 13:00] VITALS: BP 130/83
[2020-09-26 20:14] VITALS: BP 147/82
[2020-09-26] MEDS: ENOXAPARIN 40 MG/0.4 ML SQ SCH (21:06)
[2020-09-27 01:54] VITALS: BP 139/88
[2020-09-27 04:57] LABS: BASOPHILS % (AUTO) 1 % (0-1); EOSINOPHILS % (AUTO) 2 % (1-7); LYMPHOCYTES % (AUTO) 20 % (22-44); MEAN CORPUSCULAR HEMOGLOBIN 24.8 pg (27.5-34.5); MEAN CORPUSCULAR HGB CONC 32.9 g/dL (33.2-36.2); MEAN PLATELET VOLUME 6.7 fL (7.4-10.4); MONOCYTES % (AUTO) 9 % (2-9); NEUTROPHILS % (AUTO) 68 % (42-75); PLATELET COUNT 463 x10^3/uL (130-400); RED BLOOD COUNT 4.02 x10^6/uL (4.38-5.82); RED CELL DISTRIBUTION WIDTH 19.6 % (9.4-14.8)
[2020-09-27 05:01] LABS: MD NO
[2020-09-27 05:07] LABS: ALANINE AMINOTRANSFERASE 12 U/L (12-78); ALBUMIN 2.2 g/dL (3.4-5.0); ANION GAP 5 mmol/L (5-15); CALCIUM 7.8 mg/dL (8.5-10.1); CHLORIDE 105 mmol/L (98-107); CREATININE 0.56 mg/dL (0.7-1.3)
[2020-09-27 05:09] LABS: ALKALINE PHOSPHATASE 135 U/L (45-117); BILIRUBIN,TOTAL 0.2 mg/dL (0.2-1.0); TOTAL PROTEIN 5.7 g/dL (6.4-8.2)
[2020-09-27] MEDS: ASPIRIN 81 MG TABLET EC PO SCH (06:17)
[2020-09-27] MEDS: INSULIN LISPRO 100 UNITS/ML, PEN SQ-INSULIN SCH ×4 (06:19→21:38)
[2020-09-27] MEDS: CLOPIDOGREL 75 MG TABLET PO SCH (07:56)
[2020-09-27] MEDS: metFORMIN XR 500 MG TAB.ER.24H PO SCH (07:56)
[2020-09-27 07:59] VITALS: BP 156/91
[2020-09-27] MEDS: SENNA/DOCUSATE TABLET PO SCH (08:13)
[2020-09-27] MEDS: MUPIROCIN OINT 2%, 22GM TP SCH ×2 (11:45→21:38)
[2020-09-27 13:35] VITALS: BP 121/75
[2020-09-27] MEDS: HYDROcodone/APAP 5/325 TABLET PO PRN ×2 (14:11→21:38)
[2020-09-27 20:16] VITALS: BP 126/79
[2020-09-27] MEDS: ENOXAPARIN 40 MG/0.4 ML SQ SCH (21:30)
[2020-09-28 01:56] VITALS: BP 130/74
[2020-09-28 05:43] LABS: BASOPHILS % (AUTO) 1 % (0-1); EOSINOPHILS % (AUTO) 1 % (1-7); LYMPHOCYTES % (AUTO) 22 % (22-44); MEAN CORPUSCULAR HEMOGLOBIN 24.8 pg (27.5-34.5); MEAN CORPUSCULAR HGB CONC 33.1 g/dL (33.2-36.2); MEAN PLATELET VOLUME 7.2 fL (7.4-10.4); MONOCYTES % (AUTO) 9 % (2-9); NEUTROPHILS % (AUTO) 68 % (42-75); PLATELET COUNT 506 x10^3/uL (130-400); RED BLOOD COUNT 4.42 x10^6/uL (4.38-5.82); RED CELL DISTRIBUTION WIDTH 19.6 % (9.4-14.8)
[2020-09-28 05:52] LABS: MD NO
[2020-09-28] MEDS: ASPIRIN 81 MG TABLET EC PO SCH (06:14)
[2020-09-28] MEDS: HYDROcodone/APAP 5/325 TABLET PO PRN ×2 (06:14→22:09)
[2020-09-28] MEDS: INSULIN LISPRO 100 UNITS/ML, PEN SQ-INSULIN SCH ×4 (06:16→22:08)
[2020-09-28 07:42] VITALS: BP 118/68
[2020-09-28] MEDS: SENNA/DOCUSATE TABLET PO SCH (08:32)
[2020-09-28] MEDS: CLOPIDOGREL 75 MG TABLET PO SCH (08:35)
[2020-09-28] MEDS: metFORMIN XR 500 MG TAB.ER.24H PO SCH (08:35)
[2020-09-28] MEDS: MUPIROCIN OINT 2%, 22GM TP SCH ×2 (11:21→21:59)
[2020-09-28 14:40] VITALS: BP 109/64
[2020-09-28 18:37] VITALS: BP 142/75
[2020-09-28] MEDS: ENOXAPARIN 40 MG/0.4 ML SQ SCH (21:56)
[2020-09-29 00:45] VITALS: BP 121/73
[2020-09-29] MEDS: ASPIRIN 81 MG TABLET EC PO SCH (06:57)
[2020-09-29] MEDS: INSULIN LISPRO 100 UNITS/ML, PEN SQ-INSULIN SCH ×4 (07:00→22:17)
[2020-09-29 07:07] VITALS: BP 116/71
[2020-09-29] MEDS: MUPIROCIN OINT 2%, 22GM TP SCH ×2 (08:13→22:02)
[2020-09-29] MEDS: CLOPIDOGREL 75 MG TABLET PO SCH (08:13)
[2020-09-29] MEDS: metFORMIN XR 500 MG TAB.ER.24H PO SCH (08:13)
[2020-09-29] MEDS: SENNA/DOCUSATE TABLET PO SCH (08:14)
[2020-09-29 13:04] VITALS: BP 123/70
[2020-09-29 19:06] VITALS: BP 122/73
[2020-09-29] MEDS: ENOXAPARIN 40 MG/0.4 ML SQ SCH (22:03)
[2020-09-29] MEDS: HYDROcodone/APAP 5/325 TABLET PO PRN (22:18)
[2020-09-30 01:24] VITALS: BP 147/85
[2020-09-30] MEDS: INSULIN LISPRO 100 UNITS/ML, PEN SQ-INSULIN SCH ×4 (07:00→22:55)
[2020-09-30] MEDS: ASPIRIN 81 MG TABLET EC PO SCH (07:03)
[2020-09-30 07:25] VITALS: BP 127/74
[2020-09-30] MEDS: SENNA/DOCUSATE TABLET PO SCH (09:00)
[2020-09-30] MEDS: metFORMIN XR 500 MG TAB.ER.24H PO SCH (09:07)
[2020-09-30] MEDS: CLOPIDOGREL 75 MG TABLET PO SCH (09:07)
[2020-09-30] MEDS: MUPIROCIN OINT 2%, 22GM TP SCH ×2 (09:07→21:00)
[2020-09-30 13:45] VITALS: BP 101/67
[2020-09-30 20:17] VITALS: BP 111/74
[2020-09-30 20:26] VITALS: BP 145/84
[2020-09-30] MEDS: ENOXAPARIN 40 MG/0.4 ML SQ SCH (22:54)
[2020-09-30] MEDS: HYDROcodone/APAP 5/325 TABLET PO PRN (23:01)
[2020-10-01 01:21] VITALS: BP 133/73
[2020-10-01 06:30] VITALS: BP 151/63
[2020-10-01] MEDS: INSULIN LISPRO 100 UNITS/ML, PEN SQ-INSULIN SCH ×4 (07:00→20:37)
[2020-10-01] MEDS: ASPIRIN 81 MG TABLET EC PO SCH (07:06)
[2020-10-01] MEDS: metFORMIN XR 500 MG TAB.ER.24H PO SCH (08:53)
[2020-10-01] MEDS: CLOPIDOGREL 75 MG TABLET PO SCH (08:53)
[2020-10-01] MEDS: MUPIROCIN OINT 2%, 22GM TP SCH ×2 (08:54→20:35)
[2020-10-01] MEDS: SENNA/DOCUSATE TABLET PO SCH (08:54)
[2020-10-01 14:25] VITALS: BP 116/71
[2020-10-01 20:26] VITALS: BP 149/78
[2020-10-01] MEDS: ENOXAPARIN 40 MG/0.4 ML SQ SCH (20:37)
[2020-10-02 01:24] VITALS: BP 125/78
[2020-10-02 04:50] LABS: CREATININE 0.82 mg/dL (0.7-1.3)
[2020-10-02] MEDS: INSULIN LISPRO 100 UNITS/ML, PEN SQ-INSULIN SCH ×5 (06:23→22:46)
[2020-10-02] MEDS: ASPIRIN 81 MG TABLET EC PO SCH (06:23)
[2020-10-02 06:25] VITALS: BP 113/65
[2020-10-02] MEDS: MUPIROCIN OINT 2%, 22GM TP SCH ×2 (10:23→22:38)
[2020-10-02] MEDS: HYDROcodone/APAP 5/325 TABLET PO PRN ×2 (10:23→22:36)
[2020-10-02] MEDS: SENNA/DOCUSATE TABLET PO SCH (10:23)
[2020-10-02] MEDS: CLOPIDOGREL 75 MG TABLET PO SCH (10:23)
[2020-10-02] MEDS: metFORMIN XR 500 MG TAB.ER.24H PO SCH (10:23)
[2020-10-02 14:49] VITALS: BP 99/62
[2020-10-02 20:02] VITALS: BP 119/74
[2020-10-02] MEDS: ENOXAPARIN 40 MG/0.4 ML SQ SCH (22:35)
[2020-10-03 01:21] VITALS: BP 101/64
[2020-10-03] MEDS: ASPIRIN 81 MG TABLET EC PO SCH (06:30)
[2020-10-03] MEDS: INSULIN LISPRO 100 UNITS/ML, PEN SQ-INSULIN SCH ×4 (07:00→23:35)
[2020-10-03 08:04] VITALS: BP 113/69
[2020-10-03] MEDS: SENNA/DOCUSATE TABLET PO SCH (09:00)
[2020-10-03] MEDS: MUPIROCIN OINT 2%, 22GM TP SCH ×2 (11:07→21:00)
[2020-10-03] MEDS: ZINC SULFATE 220 MG CAPSULE PO SCH (11:07)
[2020-10-03] MEDS: CLOPIDOGREL 75 MG TABLET PO SCH (11:07)
[2020-10-03] MEDS: metFORMIN XR 500 MG TAB.ER.24H PO SCH (11:07)
[2020-10-03] MEDS: MULTIVITAMIN 1 TABLET PO SCH (11:07)
[2020-10-03 14:35] VITALS: BP 112/69
[2020-10-03 20:04] VITALS: BP 124/75
[2020-10-03] MEDS: ENOXAPARIN 40 MG/0.4 ML SQ SCH (23:25)
[2020-10-04 02:33] VITALS: BP 134/66
[2020-10-04 05:07] LABS: BASOPHILS % (AUTO) 1 % (0-1); EOSINOPHILS % (AUTO) 2 % (1-7); LYMPHOCYTES % (AUTO) 28 % (22-44); MEAN CORPUSCULAR HEMOGLOBIN 24.7 pg (27.5-34.5); MEAN CORPUSCULAR HGB CONC 33.2 g/dL (33.2-36.2); MEAN PLATELET VOLUME 7.3 fL (7.4-10.4); MONOCYTES % (AUTO) 12 % (2-9); NEUTROPHILS % (AUTO) 57 % (42-75); PLATELET COUNT 422 x10^3/uL (130-400); RED BLOOD COUNT 4.28 x10^6/uL (4.38-5.82); RED CELL DISTRIBUTION WIDTH 19.1 % (9.4-14.8)
[2020-10-04 05:16] LABS: ANION GAP 5 mmol/L (5-15); CALCIUM 8.7 mg/dL (8.5-10.1); CHLORIDE 106 mmol/L (98-107)
[2020-10-04 05:17] LABS: MD NO
[2020-10-04 05:18] LABS: CREATININE 0.79 mg/dL (0.7-1.3)
[2020-10-04] MEDS: ASPIRIN 81 MG TABLET EC PO SCH (06:45)
[2020-10-04] MEDS: INSULIN LISPRO 100 UNITS/ML, PEN SQ-INSULIN SCH ×4 (07:00→21:00)
[2020-10-04 07:08] VITALS: BP 103/68
[2020-10-04] MEDS: MULTIVITAMIN 1 TABLET PO SCH (08:49)
[2020-10-04] MEDS: CLOPIDOGREL 75 MG TABLET PO SCH (08:49)
[2020-10-04] MEDS: ZINC SULFATE 220 MG CAPSULE PO SCH (08:49)
[2020-10-04] MEDS: SENNA/DOCUSATE TABLET PO SCH (08:49)
[2020-10-04] MEDS: metFORMIN XR 500 MG TAB.ER.24H PO SCH (08:49)
[2020-10-04] MEDS: MUPIROCIN OINT 2%, 22GM TP SCH ×2 (09:00→23:00)
[2020-10-04 12:57] VITALS: BP 103/52
[2020-10-04] MEDS: HYDROcodone/APAP 5/325 TABLET PO PRN ×2 (15:32→23:01)
[2020-10-04 20:03] VITALS: BP 110/69
[2020-10-04] MEDS: ENOXAPARIN 40 MG/0.4 ML SQ SCH (23:01)
[2020-10-05 01:31] VITALS: BP 109/66
[2020-10-05] MEDS: ASPIRIN 81 MG TABLET EC PO SCH (07:25)
[2020-10-05] MEDS: INSULIN LISPRO 100 UNITS/ML, PEN SQ-INSULIN SCH ×4 (07:31→22:55)
[2020-10-05 08:00] VITALS: BP 95/60
[2020-10-05] MEDS: MULTIVITAMIN 1 TABLET PO SCH (08:55)
[2020-10-05] MEDS: metFORMIN XR 500 MG TAB.ER.24H PO SCH (08:55)
[2020-10-05] MEDS: ZINC SULFATE 220 MG CAPSULE PO SCH (08:56)
[2020-10-05] MEDS: CLOPIDOGREL 75 MG TABLET PO SCH (08:56)
[2020-10-05] MEDS: SENNA/DOCUSATE TABLET PO SCH (08:56)
[2020-10-05] MEDS: MUPIROCIN OINT 2%, 22GM TP SCH ×2 (08:57→22:50)
[2020-10-05 12:43] VITALS: BP 93/46
[2020-10-05 19:34] VITALS: BP 136/76
[2020-10-05] MEDS: ENOXAPARIN 40 MG/0.4 ML SQ SCH (22:51)
[2020-10-05] MEDS: HYDROcodone/APAP 5/325 TABLET PO PRN (23:07)
[2020-10-06 02:05] VITALS: BP 110/66
[2020-10-06] MEDS: ASPIRIN 81 MG TABLET EC PO SCH (06:13)
[2020-10-06] MEDS: INSULIN LISPRO 100 UNITS/ML, PEN SQ-INSULIN SCH ×4 (07:00→21:25)
[2020-10-06 07:38] VITALS: BP 114/73
[2020-10-06] MEDS: SENNA/DOCUSATE TABLET PO SCH (09:00)
[2020-10-06] MEDS: metFORMIN XR 500 MG TAB.ER.24H PO SCH (09:07)
[2020-10-06] MEDS: ZINC SULFATE 220 MG CAPSULE PO SCH (09:07)
[2020-10-06] MEDS: MULTIVITAMIN 1 TABLET PO SCH (09:07)
[2020-10-06] MEDS: CLOPIDOGREL 75 MG TABLET PO SCH (09:07)
[2020-10-06] MEDS: MUPIROCIN OINT 2%, 22GM TP SCH ×2 (09:08→21:26)
[2020-10-06 13:28] VITALS: BP 118/75
[2020-10-06 19:41] VITALS: BP 125/72
[2020-10-06] MEDS: ENOXAPARIN 40 MG/0.4 ML SQ SCH (21:26)
[2020-10-06] MEDS: HYDROcodone/APAP 5/325 TABLET PO PRN (21:49)
[2020-10-07 00:37] VITALS: BP 105/64
[2020-10-07] MEDS: ASPIRIN 81 MG TABLET EC PO SCH (06:28)
[2020-10-07 07:58] VITALS: BP 126/75
[2020-10-07] MEDS: ZINC SULFATE 220 MG CAPSULE PO SCH (08:17)
[2020-10-07] MEDS: MULTIVITAMIN 1 TABLET PO SCH (08:17)
[2020-10-07] MEDS: MUPIROCIN OINT 2%, 22GM TP SCH ×2 (08:17→21:26)
[2020-10-07] MEDS: CLOPIDOGREL 75 MG TABLET PO SCH (08:17)
[2020-10-07] MEDS: INSULIN LISPRO 100 UNITS/ML, PEN SQ-INSULIN SCH ×4 (08:17→21:24)
[2020-10-07] MEDS: metFORMIN XR 500 MG TAB.ER.24H PO SCH (08:17)
[2020-10-07] MEDS: SENNA/DOCUSATE TABLET PO SCH (08:17)
[2020-10-07 14:01] VITALS: BP 101/66
[2020-10-07 18:24] VITALS: BP 104/64
[2020-10-07] MEDS: LOPERAMIDE 2 MG CAPSULE PO PRN (21:24)
[2020-10-07] MEDS: HYDROcodone/APAP 5/325 TABLET PO PRN (21:24)
[2020-10-07] MEDS: ENOXAPARIN 40 MG/0.4 ML SQ SCH (21:25)
[2020-10-08 01:21] VITALS: BP 110/67
[2020-10-08 05:26] LABS: CREATININE 0.72 mg/dL (0.7-1.3)
[2020-10-08] MEDS: ASPIRIN 81 MG TABLET EC PO SCH (06:20)
[2020-10-08] MEDS: INSULIN LISPRO 100 UNITS/ML, PEN SQ-INSULIN SCH ×4 (07:38→21:00)
[2020-10-08 07:39] VITALS: BP 98/54
[2020-10-08] MEDS: SENNA/DOCUSATE TABLET PO SCH (08:18)
[2020-10-08] MEDS: metFORMIN XR 500 MG TAB.ER.24H PO SCH (08:18)
[2020-10-08] MEDS: CLOPIDOGREL 75 MG TABLET PO SCH (08:18)
[2020-10-08] MEDS: MULTIVITAMIN 1 TABLET PO SCH (08:18)
[2020-10-08] MEDS: ZINC SULFATE 220 MG CAPSULE PO SCH (08:18)
[2020-10-08] MEDS: MUPIROCIN OINT 2%, 22GM TP SCH ×2 (09:00→20:55)
[2020-10-08 14:05] VITALS: BP 134/82
[2020-10-08 20:04] VITALS: BP 124/73
[2020-10-08] MEDS: ENOXAPARIN 40 MG/0.4 ML SQ SCH (20:55)
[2020-10-08] MEDS: HYDROcodone/APAP 5/325 TABLET PO PRN (21:00)
[2020-10-09 01:06] VITALS: BP 113/68
[2020-10-09] MEDS: ASPIRIN 81 MG TABLET EC PO SCH (06:19)
[2020-10-09 07:12] VITALS: BP 107/70
[2020-10-09] MEDS: MULTIVITAMIN 1 TABLET PO SCH (07:51)
[2020-10-09] MEDS: metFORMIN XR 500 MG TAB.ER.24H PO SCH (07:51)
[2020-10-09] MEDS: ZINC SULFATE 220 MG CAPSULE PO SCH (07:51)
[2020-10-09] MEDS: SENNA/DOCUSATE TABLET PO SCH (07:51)
[2020-10-09] MEDS: CLOPIDOGREL 75 MG TABLET PO SCH (07:51)
[2020-10-09] MEDS: INSULIN LISPRO 100 UNITS/ML, PEN SQ-INSULIN SCH ×4 (07:51→20:42)
[2020-10-09] MEDS: MUPIROCIN OINT 2%, 22GM TP SCH ×2 (11:58→20:33)
[2020-10-09 12:34] VITALS: BP 119/75
[2020-10-09] MEDS: ENOXAPARIN 40 MG/0.4 ML SQ SCH (20:33)
[2020-10-09 20:39] VITALS: BP 127/77
[2020-10-09] MEDS: LOPERAMIDE 2 MG CAPSULE PO PRN (20:52)
[2020-10-10 01:17] VITALS: BP 123/68
[2020-10-10] MEDS: ASPIRIN 81 MG TABLET EC PO SCH (06:10)
[2020-10-10 07:05] VITALS: BP 94/60
[2020-10-10] MEDS: INSULIN LISPRO 100 UNITS/ML, PEN SQ-INSULIN SCH ×4 (08:00→20:42)
[2020-10-10] MEDS: ZINC SULFATE 220 MG CAPSULE PO SCH (08:01)
[2020-10-10] MEDS: MULTIVITAMIN 1 TABLET PO SCH (08:02)
[2020-10-10] MEDS: CLOPIDOGREL 75 MG TABLET PO SCH (08:02)
[2020-10-10] MEDS: metFORMIN XR 500 MG TAB.ER.24H PO SCH (08:02)
[2020-10-10] MEDS: MUPIROCIN OINT 2%, 22GM TP SCH ×2 (08:03→20:27)
[2020-10-10] MEDS: SENNA/DOCUSATE TABLET PO SCH (08:03)
[2020-10-10 13:16] VITALS: BP 118/72
[2020-10-10 19:45] VITALS: BP 140/85
[2020-10-10] MEDS: ENOXAPARIN 40 MG/0.4 ML SQ SCH (20:26)
[2020-10-10] MEDS: HYDROcodone/APAP 5/325 TABLET PO PRN (20:41)
[2020-10-11 02:14] VITALS: BP 102/63
[2020-10-11] MEDS: ASPIRIN 81 MG TABLET EC PO SCH (06:31)
[2020-10-11] MEDS: INSULIN LISPRO 100 UNITS/ML, PEN SQ-INSULIN SCH ×4 (06:35→21:00)
[2020-10-11 07:54] VITALS: BP 122/83
[2020-10-11] MEDS: metFORMIN XR 500 MG TAB.ER.24H PO SCH (08:30)
[2020-10-11] MEDS: SENNA/DOCUSATE TABLET PO SCH (08:30)
[2020-10-11] MEDS: MULTIVITAMIN 1 TABLET PO SCH (08:30)
[2020-10-11] MEDS: ZINC SULFATE 220 MG CAPSULE PO SCH (08:30)
[2020-10-11] MEDS: MUPIROCIN OINT 2%, 22GM TP SCH ×2 (08:31→21:00)
[2020-10-11] MEDS: CLOPIDOGREL 75 MG TABLET PO SCH (08:31)
[2020-10-11] MEDS: LOPERAMIDE 2 MG CAPSULE PO PRN ×2 (14:21→22:15)
[2020-10-11 15:08] VITALS: BP 112/68
[2020-10-11 20:51] VITALS: BP 108/45
[2020-10-11] MEDS: HYDROcodone/APAP 5/325 TABLET PO PRN (20:59)
[2020-10-11] MEDS: ENOXAPARIN 40 MG/0.4 ML SQ SCH (21:04)
[2020-10-12 02:36] VITALS: BP 95/55
[2020-10-12] MEDS: ASPIRIN 81 MG TABLET EC PO SCH (06:25)
[2020-10-12] MEDS: INSULIN LISPRO 100 UNITS/ML, PEN SQ-INSULIN SCH ×4 (07:00→21:30)
[2020-10-12 07:43] VITALS: BP 94/60
[2020-10-12] MEDS: SENNA/DOCUSATE TABLET PO SCH (08:42)
[2020-10-12] MEDS: ZINC SULFATE 220 MG CAPSULE PO SCH (08:42)
[2020-10-12] MEDS: metFORMIN XR 500 MG TAB.ER.24H PO SCH (08:42)
[2020-10-12] MEDS: CLOPIDOGREL 75 MG TABLET PO SCH (08:42)
[2020-10-12] MEDS: MULTIVITAMIN 1 TABLET PO SCH (08:42)
[2020-10-12] MEDS: MUPIROCIN OINT 2%, 22GM TP SCH ×2 (11:30→21:32)
[2020-10-12 13:19] VITALS: BP 99/64
[2020-10-12 19:48] VITALS: BP 122/71
[2020-10-12] MEDS: ENOXAPARIN 40 MG/0.4 ML SQ SCH (21:30)
[2020-10-12] MEDS: HYDROcodone/APAP 5/325 TABLET PO PRN (21:38)
[2020-10-13 01:08] VITALS: BP 110/67
[2020-10-13 05:30] LABS: CREATININE 0.76 mg/dL (0.7-1.3)
[2020-10-13] MEDS: ASPIRIN 81 MG TABLET EC PO SCH (06:28)
[2020-10-13] MEDS: INSULIN LISPRO 100 UNITS/ML, PEN SQ-INSULIN SCH ×4 (07:00→22:27)
[2020-10-13 07:29] VITALS: BP 93/51
[2020-10-13] MEDS: CLOPIDOGREL 75 MG TABLET PO SCH (08:15)
[2020-10-13] MEDS: ZINC SULFATE 220 MG CAPSULE PO SCH (08:15)
[2020-10-13] MEDS: MULTIVITAMIN 1 TABLET PO SCH (08:15)
[2020-10-13] MEDS: SENNA/DOCUSATE TABLET PO SCH (08:16)
[2020-10-13] MEDS: MUPIROCIN OINT 2%, 22GM TP SCH ×2 (08:16→22:15)
[2020-10-13] MEDS: metFORMIN XR 500 MG TAB.ER.24H PO SCH (08:16)
[2020-10-13 14:03] VITALS: BP 138/83
[2020-10-13 19:05] VITALS: BP 125/73
[2020-10-13] MEDS: ENOXAPARIN 40 MG/0.4 ML SQ SCH (22:14)
[2020-10-13] MEDS: HYDROcodone/APAP 5/325 TABLET PO PRN (22:27)
[2020-10-14 01:07] VITALS: BP 99/51
[2020-10-14] MEDS: ASPIRIN 81 MG TABLET EC PO SCH (06:30)
[2020-10-14 06:34] VITALS: BP 104/55
[2020-10-14] MEDS: INSULIN LISPRO 100 UNITS/ML, PEN SQ-INSULIN SCH ×4 (06:39→21:15)
[2020-10-14] MEDS: CLOPIDOGREL 75 MG TABLET PO SCH (08:39)
[2020-10-14] MEDS: MULTIVITAMIN 1 TABLET PO SCH (08:39)
[2020-10-14] MEDS: metFORMIN XR 500 MG TAB.ER.24H PO SCH (08:39)
[2020-10-14] MEDS: ZINC SULFATE 220 MG CAPSULE PO SCH (08:39)
[2020-10-14] MEDS: MUPIROCIN OINT 2%, 22GM TP SCH ×2 (08:40→21:15)
[2020-10-14] MEDS: SENNA/DOCUSATE TABLET PO SCH (08:40)
[2020-10-14 14:13] VITALS: BP 111/68
[2020-10-14 19:08] VITALS: BP 105/67
[2020-10-14] MEDS: LOPERAMIDE 2 MG CAPSULE PO PRN (21:15)
[2020-10-14] MEDS: ENOXAPARIN 40 MG/0.4 ML SQ SCH (21:16)
[2020-10-15 01:20] VITALS: BP 111/67
[2020-10-15] MEDS: ASPIRIN 81 MG TABLET EC PO SCH (06:37)
[2020-10-15] MEDS: INSULIN LISPRO 100 UNITS/ML, PEN SQ-INSULIN SCH ×2 (07:12→11:42)
[2020-10-15 07:37] VITALS: BP 89/50
[2020-10-15] MEDS: SENNA/DOCUSATE TABLET PO SCH (07:48)
[2020-10-15] MEDS: ZINC SULFATE 220 MG CAPSULE PO SCH (07:48)
[2020-10-15] MEDS: metFORMIN XR 500 MG TAB.ER.24H PO SCH (07:48)
[2020-10-15] MEDS: MULTIVITAMIN 1 TABLET PO SCH (07:48)
[2020-10-15] MEDS: CLOPIDOGREL 75 MG TABLET PO SCH (07:48)
[2020-10-15] MEDS: MUPIROCIN OINT 2%, 22GM TP SCH (07:48)
[2020-10-15] MEDS ORDERED: HYDR-1067 PO (11:36)
[2020-10-15] MEDS ORDERED: METF500T3 PO (11:36)
[2020-10-15] MEDS ORDERED: Multivitamin PO (11:36)
[2020-10-15] MEDS ORDERED: ASPI81TA45 PO (11:36)
[2020-10-15] MEDS ORDERED: CLOP75TA PO (11:36)
[2020-10-15 13:48] VITALS: BP 116/69
== END 2020-10-15 16:18 | DRG 270 ==
LOC: ED 10:08 → SUATTDRO 12:03 → EDIP 12:03 → 4NE 14:06
PROVIDERS: ADMIT Hospitalist; ATTEND Hospitalist
PROC: 0JBQ0ZZ Excision of Right Foot Subcutaneous Tissue and Fascia, Open Approach (ICD-10-PCS; 2020-08-27)
PROC: 047M3Z1 Dilation of Right Popliteal Artery using Drug-Coated Balloon, Percutaneous Approach (ICD-10-PCS; 2020-08-27)
PROC: 047P3ZZ Dilation of Right Anterior Tibial Artery, Percutaneous Approach (ICD-10-PCS; 2020-08-27)
PROC: 04CM3ZZ Extirpation of Matter from Right Popliteal Artery, Percutaneous Approach (ICD-10-PCS; 2020-08-27)
PROC: B4101ZZ Fluoroscopy of Abdominal Aorta using Low Osmolar Contrast (ICD-10-PCS; 2020-08-27)
PROC: B41C1ZZ Fluoroscopy of Pelvic Arteries using Low Osmolar Contrast (ICD-10-PCS; 2020-08-27)
PROC: B41F1ZZ Fluoroscopy of Right Lower Extremity Arteries using Low Osmolar Contrast (ICD-10-PCS; 2020-08-27)
PROC: 047K3ZZ Dilation of Right Femoral Artery, Percutaneous Approach (ICD-10-PCS; principal; 2020-08-27 20:00)
PROC: 30233N1 Transfusion of Nonautologous Red Blood Cells into Peripheral Vein, Percutaneous Approach (ICD-10-PCS; 2020-08-30)
PROC: 0Y6P0Z0 Detachment at Right 1st Toe, Complete, Open Approach (ICD-10-PCS; 2020-09-06)
PROC: 0Y6H0Z1 Detachment at Right Lower Leg, High, Open Approach (ICD-10-PCS; 2020-09-17)
DX: E11.52 Type 2 diabetes mellitus with diabetic peripheral angiopathy with gangrene (principal); J18.9 Pneumonia, unspecified organism; M86.171 Other acute osteomyelitis, right ankle and foot; L97.419 Non-pressure chronic ulcer of right heel and midfoot with unspecified severity; D62 Acute posthemorrhagic anemia; J81.1 Chronic pulmonary edema; K56.7 Ileus, unspecified; L03.115 Cellulitis of right lower limb; D50.9 Iron deficiency anemia, unspecified; E11.621 Type 2 diabetes mellitus with foot ulcer; E11.622 Type 2 diabetes mellitus with other skin ulcer; E11.69 Type 2 diabetes mellitus with other specified complication; I10 Essential (primary) hypertension; K59.03 Drug induced constipation; L97.519 Non-pressure chronic ulcer of other part of right foot with unspecified severity; S90.421A Blister (nonthermal), right great toe, initial encounter; T40.605A Adverse effect of unspecified narcotics, initial encounter; Z79.02 Long term (current) use of antithrombotics/antiplatelets; Z79.2 Long term (current) use of antibiotics; Z79.82 Long term (current) use of aspirin; Z90.49 Acquired absence of other specified parts of digestive tract
CPT/HCPCS: 32555; 36415; 73630; 74018; 82945; 83986; 84145; 89051; 96365; 96367; 96375; 96376; 99285; J3490; J7121; 37225; 37233; 71045; 75710; 80048; 80053; 80069; 80202; 82040; 82565; 82728; 82947; 82962; 83036; 83540; 83550; 83605; 83615; 83735; 83880; 84100; 85025; 85651; 86140; 86850; 86900; 86923; 87040; 87070; 87081; 87205; 87324; 87635; 88305; 88307; 88311; 93005; 93306; 93922; 93926; 94640; C1725; G0378; J0131; J0171; J0295; J0690; J1100; J1170; J1644; J1650; J1756; J1885; J1940; J2185; J2250; J2405; J2704; J2720; J3010; J3370; J3480; C1714; C1751; C1760; C1769; C1884; C1894; C2623; J0330; J1815; J2060; J2270; J2440; J7030; J7050; P9016